=== PATIENT | female | born 1990 | race Caucasian/White ===

== ENCOUNTER 2021-06-19 01:40 | Outpatient (CLI) | payer BC, SELFPAY ==
[2021-06-19 15:20] LABS: Kit/Specimen SENT
[2021-06-19 15:28] LABS: Abs Immature Grans 0.06 10^3/uL (0.0-0.06); Absolute Lymphocyte Count 1.92 10^3/uL (1.2-3.4); Absolute Monocyte Count 0.63 10^3/uL (0.1-0.8); Basophils % 0.4; HCT 38.5 % (36.0-46.0); HGB 12.9 g/dL (11.2-15.7); Immature Grans % 0.4; Lymphocytes % 14.3; MCH 29.1 pg (27.0-33.0); MCHC 33.5 % (32.0-36.0); MCV 86.9 fL (80-95); MPV 10.2 fL (8.0-11.0); Monocytes % 4.7; Neutrophils % 79.2; Nucleated RBC 0 %; Platelet Count 320 10^3/uL (130-400); RBC 4.43 10^6/uL (3.93-5.22); RDW 12.2 % (11.7-14.6); RDW-SD 38.7 fL; WBC 13.42 10^3/uL (4.4-10.8)
[2021-06-19 15:29] LABS: Absolute Basophil Count 0.05 10^3/uL (0.0-0.2); Absolute Eosinophil Count 0.13 10^3/uL (0.0-0.7); Absolute Neutrophil Count 10.63 10^3/uL (1.2-6.7)
[2021-06-19 16:19] LABS: Hemoglobin A1C 4.8 % (<5.7)
[2021-06-19 16:32] LABS: ALT 17 U/L (14-59); AST 11 U/L (15-37); Albumin 3.8 g/dL (3.4-5.0); Alkaline Phosphatase 58 U/L (46-116); Anion Gap 10.3 mmol/L (3-11); BUN 10 mg/dL (7-18); Bilirubin, Total 0.2 mg/dL (0.2-1.0); CO2 25.7 mmol/L (21.0-32.0); CREATININE 0.5 mg/dL (0.55-1.02); Chloride 99 mmol/L (98-107); Glucose 85 mg/dL (74-106); Potassium 4.1 mmol/L (3.5-5.1); Sodium 135 mmol/L (136-145); TSH (W/Ref FT4) 0.08 uIU/mL (0.36-3.74); Total Protein 6.9 g/dL (6.4-8.2)
[2021-06-19 16:53] LABS: FREE T4 1.22 ng/dL (0.76-1.46)
[2021-06-20 08:38] LABS: Hepatitis B Surface Ag Negative (Negative)
[2021-06-20 09:12] LABS: Varicella IgG Antibody Positive (See Note)
[2021-06-20 09:18] LABS: Rubella IgG Ab (UVM) Positive (See Note)
[2021-06-20 09:26] LABS: HIV-1/2 Ag & Ab Screen Negative (Negative)
[2021-06-20 09:36] LABS: Hepatitis C Ab w Rflx HCV PCR Negative (Negative)
[2021-06-20 13:09] LABS: Syphilis Total Ab w/Reflex Nonreactive (Nonreactive)
[2021-06-21 01:13] LABS: 25-Hydroxy D Total 49 ng/mL; 25-Hydroxy D2 <4.0 ng/mL; 25-Hydroxy D3 49 ng/mL
[2021-06-23 21:53] LABS: Specimen WB Whole Blood
== END 2021-06-19 01:41 | disposition home or self-care (01) ==
LOC: LBO 01:40
PROVIDERS: PCP Family Medicine; Visit Provider Advanced Practice Midwife
DX: O21.9 Vomiting of pregnancy, unspecified
CPT/HCPCS: 80053; 81329; 82306; 86787; 86803; 86850; 86900; 86901; 87340; 87389; 83036; 84439; 84443; 85025; 86762; 86780

== ENCOUNTER 2021-06-19 17:57 | Outpatient (REF) | payer BC, SELFPAY ==
[2021-06-19 19:48] LABS: *AMPHETAMINES SCREEN URINE Negative (Negative); *BARBITURATES SCREEN URINE Negative (Negative); *BENZODIAZEPINES SCREEN URINE Negative (Negative); Cannabinoids THC Negative (Negative); Cocaine Screen,Urine Negative (Negative); METHADONE URINE SCREEN Negative (Negative); OPIATES URINE SCREEN Negative (Negative)
[2021-06-19 19:49] LABS: Tricyclic Antidepressants Negative (Negative)
[2021-06-21 15:00] LABS: Chlamydia Result Negative (Negative); GC Result Negative (Negative)
[2021-06-25 14:38] LABS: Buprenorphine Negative ng/mL (Cutoff: 5.0); Norbuprenorphine Negative ng/mL (Cutoff: 2.5)
== END 2021-06-19 17:58 | disposition home or self-care (01) ==
LOC: LBN 17:57
PROVIDERS: PCP Family Medicine; Visit Provider Advanced Practice Midwife
DX: Z34.91 Encounter for supervision of normal pregnancy, unspecified, first trimester
CPT/HCPCS: 80307; 87491; 87591; 87086

== ENCOUNTER 2021-07-18 02:06 | Outpatient (CLI) | payer BC, SELFPAY ==
[2021-07-18 16:52] LABS: Kit/Specimen SENT
[2021-07-18 17:52] LABS: FREE T4 1.01 ng/dL (0.76-1.46); TSH 0.15 uIU/mL (0.36-3.74)
[2021-07-22 12:29] LABS: AFP 20.8 ng/mL; Cigarette smoking status non-Smoker; GA used in risk estimate Scan estimate; IVF Pregnancy No; Initial or repeat testing Initial testing; Insulin dependent diabetes No; Maternal Weight 110 lbs; Number of Fetuses 1; Prev Pregnancy w/NTD No; RECOMMENDED FOLLOW UP None.; Results Summary Normal risk
[2021-07-27 02:24] LABS: Result Summary NEGATIVE; Specimen WB Whole Blood
== END 2021-07-18 02:07 | disposition home or self-care (01) ==
LOC: LBO 02:06
PROVIDERS: Advanced Practice Midwife; PCP Family Medicine; Visit Provider Advanced Practice Midwife
DX: Z34.02 Encounter for supervision of normal first pregnancy, second trimester (principal); R79.89 Other specified abnormal findings of blood chemistry
CPT/HCPCS: 36415; 81220; 82105; 84439; 84443

== ENCOUNTER 2021-08-28 02:52 | Outpatient (CLI) | payer BC, SELFPAY ==
[2021-08-29 05:34] LABS: Vitamin D 25 Total 43.6 ng/mL (30-100)
== END 2021-08-28 02:53 | disposition home or self-care (01) ==
LOC: LBO 02:52
PROVIDERS: Advanced Practice Midwife; PCP Family Medicine; Visit Provider Advanced Practice Midwife
DX: Z34.92 Encounter for supervision of normal pregnancy, unspecified, second trimester (principal); Z77.011 Contact with and (suspected) exposure to lead
CPT/HCPCS: 36415; 82306; 83655

== ENCOUNTER 2021-10-08 02:01 | Outpatient (CLI) | payer BC, SELFPAY ==
[2021-10-08 07:19] LABS: HCT 37.1 % (36.0-46.0); HGB 12.3 g/dL (11.2-15.7); MCH 29.4 pg (27.0-33.0); MCHC 33.2 % (32.0-36.0); MCV 89 fL (80-95); MPV 10.1 fL (8.0-11.0); Platelet Count 244 10^3/uL (130-400); RBC 4.18 10^6/uL (3.93-5.22); RDW 12.5 % (11.7-14.6); RDW-SD 40.5 fL; WBC 14.36 10^3/uL (4.4-10.8)
[2021-10-08 09:27] LABS: Glucose 1 Hour 106 mg/dL
[2021-10-08 09:47] LABS: GTT Comment See Comments
== END 2021-10-08 02:02 | disposition home or self-care (01) ==
LOC: LBO 02:01
PROVIDERS: PCP Family Medicine; Visit Provider Advanced Practice Midwife
DX: Z34.92 Encounter for supervision of normal pregnancy, unspecified, second trimester (principal); Z3A.27 27 weeks gestation of pregnancy
CPT/HCPCS: 36415; 85027; 82951

== ENCOUNTER 2021-11-03 20:24 | Outpatient (CLI) | payer BC, SELFPAY ==
[2021-11-03] VITALS (30 sets, daily range): BP systolic 101; BP diastolic 65; PULSE 78–102; TEMP 37.2; O2SAT 97–100
--- OUTSIDE RECORDS SUMMARY | 2021-11-03 20:25 | XMS_ITS | Encounter Summary ---
:1990 Author Organization [facility] Address [address] [place] [address] Care Team Providers Name Role Phone Melva Covington MD Primary Care Provider Reason for Visit Reason Comments Labs Only Laboratory Services (Routine) - New Request Specialty Diagnoses / Procedures Referred By Contact Refer red To Contact Diagnoses Iron deficiency anemia secondary to inadequate dietary iron intake Melva Covington MD Procedures FERRITIN [address] [place] [address] Referral ID Status Reason Start Date Expiration Date Visits V isits Requested Authorized [id number] New Request 08/07/2020 1 1 Encounter Details Date Type Department Care Team Description 08/20/2020 Nurse Only [facility] - Nurse, [facility] Iron de ficiency anemia secondary to inadequate dietary iron intake; [facility] [place] Vitamin D d eficiency; Family Medicine - Screening for diabetes mellitus; [place] Cold hands and feet; [address] [facility] 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 Within the past 12 months, the food you bought just didn't N ever true 01/27/2020 last and you didn't have money to get more. Sex Assigned at Date Recorded Not on file COVID-19 Exposure Response Date Recorded In the last month, have you been in contact with No / Unsure 08/20/2020 9:11 EDT someone who was confirmed or suspected to have Coronavirus / COVID-19? documented as of this encounter Progress Notes Suma Chandra RN - 08/20/2020 0915 EDT Here for labs VENIPUNCTURE: Performed by Bharath RN Site Collected Left Antecubital Space DSD applied Volume Withdrawn STT; 8.5ml and Lavender Top Tube; 3.0ml Patient Response Patient tolerated venipuncture well and Number of attempts 1 Ordering Provider Melva Covington MD documented in this encounter Plan of Treatment Not on filedocumented as of this encounter Procedures Procedure Name Priority Date/Time Associated Diagnosis Comme nts T3 FREE Routine 08/20/2020 9:14 EDT Cold hands a nd feet Results for this Infertility due to procedure are in luteal phase def ect the results Hair loss section. T4 FREE Routine 08/20/2020 9:14 EDT Cold hands a nd feet Results for this Infertility due to procedure are in luteal phase def ect the results Hair loss section. FERRITIN Routine 08/20/2020 9:14 EDT Iron deficiency Resul ts for this anemia secondary to procedur e are in inadequate dietary the resul ts iron intake section. BASIC METABOLIC Routine 08/20/2020 9:14 EDT Screening for Resu lts for this PANEL (BMP) diabetes mellitus procedure are in the results section. documented in this encounter Results T3 FREE (08/20/2020 9:14 EDT) T3,FREE - [facility] 3.0 2.8 - 4.4 [facility] Comment: pg/mL [facility] Test Performed by: [facility] - [facility] [address] [place] [address] Ship Captain: Tavo Fitch M.D. Ph.D.; CLIA# [id number] Specimen Blood - Venous blood (substance) Performing Organization Address City/State/ZIP Code Phon e Number [facility] [address] [place] [address] T4 FREE (08/20/2020 9:14 EDT) Pathologist Sig nature FREE T4 - [facility] 1.18 0.78 - 2.19 ng/dl [facility] Specimen Blood - Venous blood (substance) Performing Organization Address [facility] Phon e Number [facility] [address] [place] [address] BASIC METABOLIC PANEL (BMP) (08/20/2020 9:14 EDT) [facility] 13 10 - 26 mg/dL [facility] CALCIUM - [facility] 9.8 8.5 - 10.5 [facility] mg/dL [facility] Chloride 103 96 - 110 [facility] mmol/L [facility] CO2 Total 28 22 - 32 mEq/L [facility] CREATININE 0.69 0.52 - 1.04 [facility] mg/dL [facility] eGFR >60 [facility] Comment: [facility] Chronic renal impairment is defined as GFR <60 Multiply result by 1.210 for patients . eGFR calculated using the IDMS-traceable MDRD Study Equation. ??(effective 03/27/2014) Anion Gap 10 0 - 18 [facility] GLUCOSE [facility] 85 70 - 100 mg/dL [facility] Potassium 4.3 3.5 - 5.0 [facility] mEq/L [facility] Sodium 141 136 - 145 [facility] mEq/L [facility] Specimen Blood - Venous blood (substance) Performing Organization Address [facility] Phon e Number [facility] [address] [place] [phone] FERRITIN (08/20/2020 9:14 EDT) [facility] FERRITIN [facility] 20 6.2 - 137.0 [facility] Comment: ng/mL [facility] The results of this assay can be falsely lowered due t o the consumption of Biotin. Specimen Blood - Venous blood (substance) Performing Organization Address 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
--- OUTSIDE RECORDS SUMMARY | 2021-11-03 20:25 | XMS_ITS | Encounter Summary ---
:1990 Author Organization [facility] Address [address] [place] [address] Care Team Providers Name Role Phone Melva Covington MD Primary Care Provider Reason for Visit Reason Onset Date Comments Results 08/21/2020 Encounter Details Date Type Department Care Team Description 08/21/2020 Telephone [facility] Melva Gonzalez MD Results [facility] - [address] [place] [address] [phone] Social History Tobacco Use Types Packs/Day Years [...] / COVID-19? documented as of this encounter Miscellaneous Notes Telephone Encounter - Joanna Dave LPN - 08/21/2020 0804 EDT mychart message sent with normal results elephone Encounter - Joanna Dave LPN - 08/21/2020 0803 EDT ----- Message from Melva Covington MD sent at 08/20/2020 15:03 EDT ----- Tell patient results are normal. documented in this encounter Plan of Treatment Not on filedocumented as of this encounter Visit Diagnoses Not on filedocumented in this encounter Care Teams Squeegee Finisher Relationship Specialty Start Date End Date Melva Covington MD PCP - General Family Medicine - Primary 04/27/19 Care documented as of this encounter
--- OUTSIDE RECORDS SUMMARY | 2021-11-03 20:25 | XMS_ITS | Encounter Summary ---
:1990 Author Organization [facility] Address [address] [place] [address] Care Team Providers Name Role Phone Melva Covington MD Primary Care Provider Reason for Visit Reason Onset Date Comments Letter for School/Work 06/13/2021 Encounter Details Date Type Department Care Team Description 06/13/2021 Telephone [facility] - Melva Covignton Letter for School/Work RUST MD [facility] - [address] [place] [address] [phone] Social History Tobacco Use Types Packs/Day Years [...] Assigned at Date Recorded Not on file documented as of this encounter Miscellaneous Notes Telephone Encounter - Elsi Simons MA - 06/13/2021 1457 EST Letter sent via [employer]. elephone Encounter - Melva Covington MD - 06/13/2021 1429 EST sure Telephone Encounter - Preeti Gimenez - 06/13/2021 0848 EST Pt Calling to ask if RC can write a letter for work, Looking to extend time working from home, issues, vomiting, Etc. documented in this encounter Plan of Treatment Not on filedocumented as of this encounter Visit Diagnoses Not on filedocumented in this encounter Care Teams Furniture Finisher Relationship Specialty Start Date End Date Melva Covington MD PCP - General Family Medicine - Primary 04/27/19 Care documented as of this encounter
--- OUTSIDE RECORDS SUMMARY | 2021-11-03 20:25 | XMS_ITS | Encounter Summary ---
:1990 Author Organization [facility] Address [address] [place] [address] Care Team Providers Name Role Phone Melva Covington MD Primary Care Provider Encounter Details Date Type Department Care Team Description 08/28/2021 Lab Requisition [facility] Outr Resulting Lab, Pathology & Laboratory Provider [facility] [address] [place], [place] [id number] Social History Tobacco Use Types Packs/Day Years [...] on file documented as of this encounter Plan of Treatment Not on filedocumented as of this encounter Procedures Procedure Name Priority Date/Time Associated Diagnosis Comme nts [facility] Routine 08/28/2021 7:16 EDT Res ults for [facility] procedure are i n the results section. documented in this encounter Results [facility] (08/28/2021 7:16 EDT) Pathologist Sig nature Lead <2.0 <=4.9 ug/dL [facility] Specimen Blood - Venous blood (substance) Narrative [facility] - 2021 11:49 EDT Testing performed using Graphite Furnace Atomic Absorption Spectroscopy. This test was developed and its performa nce characteristics determined by the [facility]. ??It has not been cleared or approved by the FDA. ??The laboratory is regulated under CLIA as qualified to perform high comple xity testing. ??This test is used for clinical purposes. Performing Organization Address City/State/[facility] Code Phon e Number [facility] [address] [place] [address] SERVICES documented in this encounter Visit Diagnoses Not on filedocumented in this encounter Care Teams Certified Home Health Aide Relationship Specialty Start Date End Date Melva Covington MD PCP - General Family Medicine - Primary 04/27/19 Care documented as of this encounter
--- OUTSIDE RECORDS SUMMARY | 2021-11-03 20:25 | XMS_ITS | Encounter Summary ---
:1990 Author Organization [facility] Address [address] [place] [address] Care Team Providers Name Role Phone Melva Covington MD Primary Care Provider Encounter Details Date Type Department Care Team Description 06/19/2021 Lab Requisition [facility] Outr Resulting Lab, Pathology & Laboratory Provider [facility] [address] [place], [place] [id number] Social History Tobacco Use Types Packs/Day Years [...] Name Priority Date/Time Associated Diagnosis Comme nts HEPATITIS C AB W Routine 06/19/2021 15:07 Results for this REFLEX TO HCV RNA EST procedure are in BY PCR the results section. HEPATITIS B SURFACE Routine 06/19/2021 15:07 Resu lts for this ANTIGEN EST procedure are i n the results section. documented in this encounter Results HEPATITIS B SURFACE ANTIGEN (06/19/2021 15:07 EST) Pathologist Sig nature Hep B Surface Ag Negative Negative [facility] Specimen Blood - Venous blood (substance) Performing Organization Address City/State/ZIP Code Phon e Number [facility] [address] [place] [address] SERVICES HEPATITIS C AB W REFLEX TO HCV RNA BY PCR (06/19/2021 15:07 EST) Pathologist Sig nature Hep C Antibody Negative Negative [facility] Specimen Blood - Venous blood (substance) Performing Organization Address City/State/ZIP Code Phon e Number [facility] [address] [place] [address] SERVICES documented in this encounter Visit Diagnoses Not on filedocumented in this encounter Care Teams Racket Stringer Relationship Specialty Start Date End Date Melva Covington MD PCP - General Family Medicine - Primary 04/27/19 Care documented as of this encounter
--- OUTSIDE RECORDS SUMMARY | 2021-11-03 20:25 | XMS_ITS | Encounter Summary ---
:1990 Author Organization [facility] Address [address] [place] [address] Care Team Providers Name Role Phone Melva Covington MD Primary Care Provider Reason for Visit Reason Onset Date Comments Labs Only 05/04/2020 Encounter Details Date Type Department Care Team Description 05/04/2020 Telephone [facility] Melva Gonzalez MD Labs Only [facility] - [address] [place], [place] [address] [place] [phone] [place] [address] [phone] Social History Tobacco Use Types Packs/Day Years [...] this encounter Miscellaneous Notes Telephone Encounter - Kenny Nolasco RN - 05/14/2020 1553 EST Results reviewed with the client. elephone Encounter - Margareth Richards - 05/09/2020 1300 EST Pt called again asking for results. I relayed to her RC's message that all three were normal but shehas questions for a nurse. She is asking to be contacted after 4. elephone Encounter - Melisa Garcia - 05/04/2020 1249 EST Pt calling asking for recent lab results. documented in this encounter Plan of Treatment Not on filedocumented as of this encounter Visit Diagnoses Not on filedocumented in this encounter Care Teams Tan Room Supervisor Relationship Specialty Start Date End Date Melva Covington MD PCP - General Family Medicine - Primary 04/27/19 Care documented as of this encounter
--- OUTSIDE RECORDS SUMMARY | 2021-11-03 20:25 | XMS_ITS | Encounter Summary ---
:1990 Author Organization [facility] Address [address] [place] [address] Care Team Providers Name Role Phone Melva Covington MD Primary Care Provider Encounter Details Date Type Department Care Team Description 08/20/2020 Travel Social History Tobacco Use Types Packs/Day Years [...] / COVID-19? documented as of this encounter Plan of Treatment Not on filedocumented as of this encounter Visit Diagnoses Not on filedocumented in this encounter Care Teams Office Machine Installer Relationship Specialty Start Date End Date Melva Covington MD PCP - General Family Medicine - Primary 04/27/19 Care documented as of this encounter
--- OUTSIDE RECORDS SUMMARY | 2021-11-03 20:25 | XMS_ITS | Encounter Summary ---
:1990 Author Organization [facility] Address [address] [place] [address] Care Team Providers Name Role Phone Melva Covington MD Primary Care Provider Reason for Visit Reason Onset Date Comments Results 07/20/2020 Covid-19 Call Center Encounter Details Date Type Department Care Team Description 07/20/2020 Telephone [facility] - Jillian Pierre RN Resul (Covid-19 Call [facility] [address] [place] [address] Social History Tobacco Use Types Packs/Day Years [...] this encounter Miscellaneous Notes Telephone Encounter - Jillian Pierre RN - 07/20/2020 0824 EST Patient called to ask for her results for the Covid-19 test she had on 07/17/20. Patient provided with negative result. Patient reports that she is feeling well. documented in this encounter Plan of Treatment Not on filedocumented as of this encounter Visit Diagnoses Not on filedocumented in this encounter Care Teams Slip Cover Estimator Relationship Specialty Start Date End Date Melva Covington MD PCP - General Family Medicine - Primary 04/27/19 [facility] documented as of this encounter
--- OUTSIDE RECORDS SUMMARY | 2021-11-03 20:25 | XMS_ITS | Encounter Summary ---
:[address] [facility] Address [address] [place] [address] Care Team Providers Name Role Phone Melva Covington MD Primary Care Provider Reason for Referral Laboratory Services (Routine) - New Request Specialty Diagnoses / Procedures Referred By Contact Refer red To Contact Diagnoses Iron deficiency anemia secondary to inadequate dietary iron intake Melva Covington MD Procedures FERRITIN [address] [place] [address] Referral ID Status Reason Start Date Expiration Date Visits V isits Requested Authorized [id number] New Request 08/07/2020 1 1 aboratory Services (Routine/Next Available) - New Request Specialty Diagnoses / Procedures Referred By Contact Refer red To Contact Diagnoses Iron deficiency anemia secondary to inadequate dietary iron intake Melva Covington MD Procedures COMPLETE BLOOD COUNT AND DIFFERENTIAL [address] [place] [address] Referral ID Status Reason Start Date Expiration Date Visits V isits Requested Authorized [id number] New Request 08/07/2020 1 1 aboratory Services (Routine) - New Request Specialty Diagnoses / Procedures Referred By Contact Refer red To Contact Diagnoses Vitamin D deficiency Melva Covington MD Procedures VITAMIN D (25,OH) [address] [place] [address] Referral ID Status Reason Start Date Expiration Date Visits V isits Requested Authorized [id number] New Request 08/07/2020 1 1 aboratory Services (Routine) - New Request Specialty Diagnoses / Procedures Referred By Contact Refer red To Contact Diagnoses Screening for diabetes mellitus Melva Covington MD Procedures BASIC METABOLIC PANEL (BMP) [address] [place] [address] Referral ID Status Reason Start Date Expiration Date Visits V isits Requested Authorized [id number] New Request 08/07/2020 1 1 aboratory Services (Routine/Next Available) - New Request Specialty Diagnoses / Procedures Referred By Contact Refer red To Contact Diagnoses Cold hands and feet 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 Hair loss Melva Covington MD Procedures T4 FREE [address] [place] [address] Referral ID Status Reason Start Date Expiration Date Visits V isits Requested Authorized [id number] New Request 08/07/2020 1 1 aboratory Services (Routine) - New Request Specialty Diagnoses / Procedures Referred By Contact Refer red To Contact Diagnoses Cold hands and feet 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 [address] Screening for diabetes mellitus; [address] [place], [place] Vitamin D deficiency; [place], [place] [phone] Iron deficiency anemia secondary to inad equate dietary iron intake; [phone] Hair loss (Work) Social History Tobacco Use Types Packs/Day Years [...] on file documented as of this encounter Last Filed Vital Signs Vital Sign Reading Time Taken Comments Blood Pressure - - Pulse - - Temperature - - Respiratory Rate - - Oxygen Saturation - - Inhaled Oxygen Concentration - - Weight 49.9 kg (110 lb) 08/06/2020 1627 EDT Height 157.5 cm (5' 2.01) 08/06/2020 1627 EDT Body Mass Index 20.11 08/06/2020 1627 EDT documented in this encounter Progress Notes Melva Covington MD - 08/07/2020 1600 EDT Images from the original note were not included. [facility] Video Visit Today's visit was provided through telemedicine video conferencing: The location of the patient: Workplace The location of the provider: Home office Verbal consent: The concept of ???Telemedicine?? has been described to the patient.Patient has been informed of theanticipated benefits and possible risks. Patient understands the information provided regarding telemedicine, has had the opportunity to ask questions about this information, and all questions have been answered to patient???s satisfaction. Patient consents for the use of telemedicine in his/her medical care and authorizes the transmission of any relevant medical information to providers and their staff involved in patient???s medical or mental health care. Verbal consent obtained by myself or auxiliary staff: yes. Subjective: Chief Complaint(s): Labs Only HPI: 29 yo F who would like discuss labs for pre-, vit d, iron, involved thyroid panel, AIC. She has cold hands and feel all of the time, hair loss, fatigue, and prolonged luteal phase. She has a history of iron deficiency anemia and vitamin d deficiency. She is also curious out getting the COVID vaccination before getting . I have reviewed patient's tobacco history: reports that she has never smoked. She has never used smokeless tobacco. I have reviewed current problem list and current medications. ROS: Review of Systems Constitutional: Positive for malaise/fatigue and weight loss. Skin: Hair loss Endo/Heme/Allergies: Cold hands and feet Objective: Examination: Home Vitals: Ht 157.5 cm (62.01) Wt 49.9 kg (110 lb) BMI 20.11 kg/m?? Pertinent exam findings: appears well, neck supple, no JVD, non-labored breathing, no wheeze, no rash on visible skin and mood and affect appropriate Data reviewed with patient: Reviewed and/or ordered active problem list, medication list, allergies,notes from last encounter, lab results tests Results for orders placed or performed in visit on 07/17/20 FLU/COVID SHAHRZAD(FLUVID) Result Value Ref Range SARS-CoV-2 RT-PCR Not Detected INFLUENZA A PCR - [facility] TNP INFLUENZA B PCR - [facility] TNP RSV PCR - [facility] TNP Assessment & Plan: Onelia was seen today for labs only. 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 I spent a total of 30 minutes in discussion with the patient as described in the progress note. The following individuals and their role did participate in today's encounter visit: Provider: Melva Covington MD Patient Melva Covington MD documented in this encounter Plan of Treatment Scheduled Orders Name Type Priority Associated Diagnoses Order S ludwin VITAMIN D (25,OH) Lab Routine Vitamin D deficiency Ex pected: 08/08/2020 (Approximate), Expires: 2021 COMPLETE BLOOD COUNT AND Lab Routine Iron deficiency anemia Expected: 08/07/2020 DIFFERENTIAL secondary to inadequate (Juancho roximate), dietary iron intake Expires: 08/07/2021 documented as of this encounter Results FERRITIN (08/20/2020 9:14 EDT) [facility] FERRITIN [facility] 20 6.2 - 137.0 [facility] Comment: ng/mL [facility] The results of this assay can be falsely lowered due t o the consumption of Biotin. Specimen Blood - Venous blood (substance) Performing Organization Address [facility] Phon e Number [facility] [address] [place] [address] BASIC METABOLIC PANEL (BMP) (08/20/2020 9:14 EDT) [facility] BUN [facility] 13 10 - 26 mg/dL [facility] CALCIUM - [facility] 9.8 8.5 - 10.5 [facility] mg/dL [facility] Chloride 103 96 - 110 [facility] mmol/L [facility] CO2 Total 28 22 - 32 mEq/L [facility] CREATININE 0.69 0.52 - 1.04 [facility] mg/dL [facility] eGFR >60 [facility] Comment: [facility] Chronic renal impairment is defined as GFR <60 Multiply result by 1.210 for patients . eGFR calculated using the IDMS-traceable MDRD Study Equation. ??(effective 03/27/2014) Anion Gap 10 0 - 18 [facility] GLUCOSE - [facility] 85 70 - 100 mg/dL [facility] Potassium 4.3 3.5 - 5.0 [facility] mEq/L [facility] Sodium 141 136 - 145 [facility] mEq/L [facility] Specimen Blood - Venous blood (substance) Performing Organization Address City/[facility] Phon e Number [facility] [address] [place] [address] T4 FREE (08/20/2020 9:14 EDT) Pathologist [facility] nature FREE T4 - [facility] 1.18 0.78 - 2.19 ng/dl [facility] Specimen Blood - Venous blood (substance) Performing Organization Address City/[facility]/ZIP Code Phon e Number [facility] [address] [place] [address] T3 FREE (08/20/2020 9:14 EDT) T3,FREE - [facility] 3.0 2.8 - 4.4 [facility] Comment: pg/mL [facility] Test Performed by: [facility] [address] [place] [address] Air Pollution Engineer: Tavo Fitch M.D. Ph.D.; CLIA# [id number] Specimen Blood - Venous blood (substance) Performing Organization Address City/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 08/07/2020 380A INTRAUTERINE) Fish Oil-[place]-3 1 cap by mouth daily Fatty Acids (FISH OIL) 360-1,200 mg capsule TURMERIC ORAL Take by mouth. 08/07/2020 documented as of this encounter Historical Medications This list may reflect changes made after this encounter. Medication Sig Dispensed Refills Start Date End Date docosahexaenoic acid (DHA Take by mouth. 0 05/21/2021 ORAL) added in this encounter Care Teams Die Cutting Machine Operator Relationship Specialty Start Date End Date Melva Covington MD PCP - General Family Medicine - Primary 04/27/19 Care documented as of this encounter
--- OUTSIDE RECORDS SUMMARY | 2021-11-03 20:25 | XMS_ITS | Encounter Summary ---
:[address] [facility] Address [address] [place] [address] Care Team Providers Name Role Phone Melva Covington MD Primary Care Provider Encounter Details Date Type Department Care Team Description 06/19/2021 Lab Requisition [facility] Outr Resulting Lab, Pathology & Laboratory Provider [facility] [address] [place], [place] [address] Social History Tobacco Use Types Packs/Day Years [...] Name Priority Date/Time Associated Diagnosis Comme nts RUBELLA IGG Routine 06/19/2021 15:07 Results for this ANTIBODY EST procedure are i n the results section. VARICELLA IGG Routine 06/19/2021 15:07 Results fo r this ANTIBODY EST procedure are i n the results section. documented in this encounter Results VARICELLA IGG ANTIBODY (06/19/2021 15:07 EST) Varicella IgG Ab PositiveComment: See Note [facility] Presence of LABORATORY SERVICES detectable Varicella Zoster virus IgG antibodies. Specimen Blood - Venous blood (substance) Performing Organization Address City/State/ZIP Code Phon e Number [facility] LABORATORY [address] [place] [address] SERVICES RUBELLA IGG ANTIBODY (06/19/2021 15:07 EST) Rubella IgG Ab PositiveComment: See Note [facility] Positive for IgG LABORATORY SERVICES antibodies to Rubella virus. Specimen Blood - Venous blood (substance) Performing Organization Address City/State/ZIP Code Phon e Number [facility]ORY [address] [place] [address] SERVICES documented in this encounter Visit Diagnoses Not on filedocumented in this encounter Care Teams As400 Developer Relationship Specialty Start Date End Date Melva Covington MD PCP - General Family Medicine - Primary 04/27/19 Care documented as of this encounter
--- OUTSIDE RECORDS SUMMARY | 2021-11-03 20:25 | XMS_ITS | Clinical Summary ---
:1990 Author Organization [facility] Address [address] [place] [address] Care Team Providers Name Role Phone Melva Covington MD Primary Care Provider Allergies No known active allergies Medications Medication Sig Dispensed Refills Start Date End Date Status vit Take 1 Capsule by 90 Cap 4 02/06/2020 Active 45-ujdv-nfoya-dha 27mg mouth daily. iron- 800 mcg-250 mg capsuleIndications: Encounter for preconception consultation Active Problems No known active problems Resolved Problems Problem Noted Date Resolved Date IUD (intrauterine device) in place 09/16/201908/07 Other general symptoms and signs 08/05/2019 021 Encounters Date Type Specialty Care Team Description 08/28/2021 Lab Requisition Clinical Laboratory Outr Resulting Lab , Provider from Last 3 Months Immunizations Name Administration Dates Next Due Covid-19 mRNA Vaccine ([place] COVID-19) 09/29/2020 PF 0.3 ml IM (12 yrs+) DTaP Vaccine (INFANRIX) <7YO IM 05/07/1990 Hepatitis A Vaccine Ped-Adol 07/20/2004 (HAVRIX/VAQTA) 2 Dose IM Hepatitis B Vaccine Ped/Adolescent 3-dose 08/27/1995, 1994, 02/19/1995 IM Hib PRP-T Conjugate Vaccine 4 Dose IM 12/07/1989 Human Papillomavirus (HPV9) 9-Valent 12/18/2011, 09/17/2011, 07/14/2011 Vaccine (GARDASIL-9) IM MMR Vaccine SQ 11/19/2015, 11/22/1993 Meningococcal Conjugate (MCV4) Vaccine 11/28/2006 (MENACTRA) 4-Valent IM Poliovirus Vaccine IPV IM OR SQ 05/07/1990 Tdap Vaccine =>7YO IM 11/16/2015, 11/15/2009 Varicella (Chickenpox) vaccine (VARIVAX) 05/25/1998 SQ Family History Medical History Relation Name Comments High Cholesterol Father Cancer Maternal Grandmother breast High Cholesterol Mother Relation Name Status Comments Father Maternal Grandmother Mother Social History Tobacco Use Types Packs/Day Years [...] Assigned at Date Recorded Not on file Last Filed Vital Signs Vital Sign Reading Time Taken Comments Blood Pressure 98/64 02/06/2020 1521 EDT Pulse 70 02/06/2020 1521 EDT Temperature 36.8 ??C (98.2 ??F) 09/16/2019 0805 EDT Respiratory Rate 16 02/06/2020 1521 EDT Oxygen Saturation - - Inhaled Oxygen Concentration - - Weight 49.9 kg (110 lb) 08/06/2020 1627 EDT Height 157.5 cm (5' 2.01) 05/21/2021 1440 EST Body Mass Index 20.11 08/06/2020 1627 EDT Plan of Treatment Health Maintenance Due Date Last Done Comments Social Determinants Of Health (SDOH) 1990 Advance Directive 2006 Cervical Cancer Screening 08/08/2018 08/09/2015 Behavioral Health Screen 09/15/2020 09/16/2019 COVID-19 Vaccine (2 - Pfizer 3-dose 10/20/2020 09/29/2020 series) Preventive Care Visit 01/26/2022 01/27/2020 Influenza Immunization (Adult) (Season 02/22/2022 Ended) Tetanus (Adult) Immunization 11/15/2025 11/16/2015, 010 Pertussis (Adult) Immunization Completed 11/16/2015, 11/15 HIV Screening Completed 06/19/2021 Hepatitis C Screen Completed 06/19/2021 Procedures Procedure Name Priority Date/Time Associated Diagnosis Comme nts [facility], [facility] Routine 08/28/2021 7:16 EDT Res ults for this CENTER LAB procedure are i n the results section. from Last 3 Months Results LEAD, [facility] (08/28/2021 7:16 EDT) Pathologist Sig nature Lead <2.0 <=4.9 ug/dL [facility] LABORATOR Y SERVICES Specimen Blood - Venous blood (substance) Narrative [facility] LABORATORY SERVICES - 2021 11:49 EDT Testing performed using Graphite Furnace Atomic Absorption Spectroscopy. This test was developed and its performa nce characteristics determined by the [facility]. ??It has not been cleared or approved by the FDA. ??The laboratory is regulated under CLIA as qualified to perform high comple xity testing. ??This test is used for clinical purposes. Performing Organization Address City/[facility] Code Phon e Number [facility] LABORATORY [address] [place] [address] SERVICES from Last 3 Months Insurance Payer Benefit Plan / Subscriber ID Effective Dates Phone Addre ss Type Group [facility] [id number] 01/24/2020-Present [address] [place] [address] Guarantor Name Account Type Relation to Date of Phone Bill ing Patient Address Onelia Anne Personal/Family Self 1990 [address] (Home) [place] [address] Onelia Anne Personal/Family Self 1990 [address]Home) [place] [address] Onelia Anne Personal/Family Self 1990 [address]Home) [place] [address] Onelia Anne Personal/Family Self 1990 [address]Home) [place] [address] Onelia Anne Personal/Family Self 1990 [address]Home) [place] [address] Onelia Anne Personal/Family Self 1990 [address] (Home) [place] [address] Onelia Anne Personal/Family Self 1990 [address] (Home) [place] [address] Onelia Anne Personal/Family Self 1990 [address] (Home) [place] [address] Care Teams Proposal Manager Relationship Specialty Start Date End Date Melva Covington MD PCP - General Family Medicine - Primary 04/27/19 Care
--- OUTSIDE RECORDS SUMMARY | 2021-11-03 20:25 | XMS_ITS | Encounter Summary ---
:1990 Author Organization [facility] Address [address] [place] [address] Care Team Providers Name Role Phone Melva Covington MD Primary Care Provider Encounter Details Date Type Department Care Team Description 07/17/2020 Results Only [facility] Melva Covington, [facility] - [place] [address] [facility] [address] [place] [phone] (Wo rk) Social History Tobacco Use Types Packs/Day Years [...] Name Priority Date/Time Associated Diagnosis Comme nts FLU/COVID Routine 07/17/2020 10:14 Results for this SHAHRZAD(FLUVID) EST procedure are i n the results section. documented in this encounter Results FLU/COVID SHAHRZAD(FLUVID) (07/17/2020 10:14 EST) SARS-CoV-2 RT-PCR Not Detected [facility] Comment: [facility] The 2019 novel coronavirus (SARS-CoV-2) target nucleic acids are not detected. INFLUENZA A PCR - TNP [facility] INFLUENZA B PCR - [facility] RSV PCR - [facility] Specimen Performing Organization Address City/State/ZIP Code Phon e Number [facility] [address] [place] [address] documented in this encounter Visit Diagnoses Not on filedocumented in this encounter Care Teams Tours Hostess Relationship Specialty Start Date End Date Melva Covington MD PCP - General Family Medicine - Primary 04/27/19 Care documented as of this encounter
--- OUTSIDE RECORDS SUMMARY | 2021-11-03 20:25 | XMS_ITS | Encounter Summary ---
:1990 Author Organization [facility] Address [address] [place] [address] Care Team Providers Name Role Phone Melva Covington MD Primary Care Provider Reason for Visit Reason Comments COVID-19 Encounter Details Date Type Department Care Team Description 07/17/2020 Office Visit [facility] Scre ening for viral [facility] Testing disease (Prim alberto Dx) [facility] - [facility] Testing Department [address] [place] [address] Social History Tobacco Use Types Packs/Day Years [...] on file documented as of this encounter Progress Notes Kyra Almodovar - 07/17/2020 0900 EST SWABBED BY CF RN documented in this encounter Plan of Treatment Not on filedocumented as of this encounter Visit Diagnoses Diagnosis Screening for viral disease - Primary Special screening examination for unspec ified viral disease documented in this encounter Care Teams Manager Case Relationship Specialty Start Date End Date Melva Covington MD PCP - General Family Medicine - Primary 04/27/19 Care documented as of this encounter
--- OUTSIDE RECORDS SUMMARY | 2021-11-03 20:25 | XMS_ITS | Encounter Summary ---
:1990 Author Organization [facility] Address [address] [place] [address] Care Team Providers Name Role Phone Melva Covington MD Primary Care Provider Encounter Details Date Type Department Care Team Description 06/20/2021 Lab Requisition [facility] Outr Resulting Lab, Pathology & Laboratory Provider [facility] [address] [place], [place] [id number] Social History Tobacco Use Types Packs/Day Years [...] encounter Procedures Procedure Name Priority Date/Time Associated Comments Diagnosis CHLAMYDIA/N. Routine 06/19/2021 14:00 Results for this GONORRHOEAE AMPLIFIED EST proced ure are in RNA the results section. documented in this encounter Results CHLAMYDIA/N. GONORRHOEAE AMPLIFIED RNA (06/19/2021 14:00 EST) Pathologist Sig nature Gonococcus Result Negative Negative [facility] Chlamydia Result Negative Negative [facility] Specimen Swab - Entire endocervix (body structure ) Performing Organization Address City/State/ZIP Code Phon e Number [facility] [address] [place] [address] SERVICES documented in this encounter Visit Diagnoses Not on filedocumented in this encounter Care Teams Roll Line Operator Relationship Specialty Start Date End Date Melva Covington MD PCP - General Family Medicine - Primary 04/27/19 Care documented as of this encounter
--- OUTSIDE RECORDS SUMMARY | 2021-11-03 20:25 | XMS_ITS | Encounter Summary ---
:1990 Author Organization [facility] Address [address] [place] [address] Care Team Providers Name Role Phone Mevla Covington MD Primary Care Provider Reason for Visit Reason Onset Date Comments Other 05/23/2021 Encounter Details Date Type Department Care Team Description 05/23/2021 Telephone [facility] Melva Gonzalez MD Other [facility] - [address] [place], [place] [address] [address] [phone] Social History Tobacco Use Types Packs/Day Years [...] this encounter Miscellaneous Notes Telephone Encounter - Preeti Gimenez - 05/23/2021 0955 EST .. documented in this encounter Plan of Treatment Not on filedocumented as of this encounter Visit Diagnoses Not on filedocumented in this encounter Care Teams A/C Tech Relationship Specialty Start Date End Date Melva Covington MD PCP - General Family Medicine - Primary 04/27/19 Care documented as of this encounter
--- OUTSIDE RECORDS SUMMARY | 2021-11-03 20:25 | XMS_ITS | Encounter Summary ---
:1990 Author Organization [facility] Address [address] [place] [address] Care Team Providers Name Role Phone Melva Covington MD Primary Care Provider Reason for Visit Reason Comments Other , booster, medical l eave Encounter Details Date Type Department Care Team Description 05/21/2021 Telemedicine [facility] - Melva Covington t mullen 8 weeks [facility] MD Aracely gestation of Medicine - [address] (Primary Dx) [address] [place] [address] [phone] Social History Tobacco Use Types Packs/Day Years [...] - Inhaled Oxygen Concentration - - Weight - - Height 157.5 cm (5' 2.01) 05/21/2021 1440 EST Body Mass Index - - documented in this encounter Progress Notes Melva Covington MD - 05/21/2021 1500 EST Images from the original note were not included. [facility] [place] Video Visit Today's visit was provided through telemedicine video conferencing: The location of the patient: Home The location of the provider: Home office [...] or auxiliary staff: yes. Subjective: Chief Complaint(s): Other (, booster, medical leave ) HPI: 30 yo F who is wondering about getting her booster for the COVID vaccination. She needs a letter for work so that she can wait until the endo of her first trimester. I have reviewed patient's tobacco history: reports that she has never smoked. She has never used smokeless tobacco. I have reviewed current problem list and current medications. ROS: Review of Systems Psychiatric/Behavioral: The patient is nervous/anxious. Objective: Examination: Home Vitals: Ht 157.5 cm (62.01) BMI 20.11 kg/m?? Pertinent exam findings: appears well, neck supple, no JVD, non-labored breathing, no wheeze, no rash on visible skin and mood and affect appropriate Data reviewed with patient: Reviewed and/or ordered active problem list, medication list, allergies,notes from last encounter, lab results tests Results for orders placed or performed in visit on 08/20/20 COMPLETE BLOOD COUNT WITH DIFFERENTIAL (AUTO) Result Value Ref Range ABSOLUTE NEUTROPHIL COUN - [facility] 4.0 2.2 - 8.85 10e3/uL BASO # - [facility] 0.05 0.01 - 0.11 10e/uL BASO % - [facility] 1 0 - 2 % EOS # - [facility] 0.22 0.03 - 0.61 10e3/ul EOS % - [facility] 3 0 - 5 % GRAN % - [facility] 58.4 40 - 80 % HEMATOCRIT - [facility] 45.6 (H) 34.9 - 44.4 % HEMOGLOBIN - [facility] 14.9 11.6 - 15.2 g/dl IG# - [facility] 0.01 0 - 0.7 10e3/uL IG% - [facility] 0.1 0 - 0.9 % LYMPH # - [facility] 2.1 1.09 - 3.3 10e3/ul LYMPH% - [facility] 31.2 20 - 40 % MEAN CORPUSCULAR HGB - [facility] 28.8 26.7 - 33.3 pg MEAN CORPUSCULAR HGB CONC - [facility] 32.7 32.1 - 35.9 g/dL MEAN CELL VOLUME - [facility] 88.2 81 - 98 fl MONO # - [facility] 0.4 0.1 - 0.8 10e3/uL MONO% - [facility] 6.4 0 - 12 % PLATELET COUNT 311 141 - 377 10e3/ul RED BLOOD COUNT - [facility] 5.17 (H) 3.86 - 5.04 10e6/ul RED CELL DISTRI WIDTH - [facility] 12.1 <14.7 % WHITE BLOOD COUNT - [facility] 6.8 4.0 - 12.4 10e3/ul VIT D, 25-HYDROXY - [facility] Result Value Ref Range VIT D, 25 HYDROXY - [facility] 39.2 30 - 100 ng/ml Assessment & Plan: Onelia was seen today for other. Diagnoses and all orders for this visit: Less than 8 weeks gestation of Comments: Letter written and questions answered. Return if symptoms worsen or fail to improve. I spent a total of 30 minutes in discussion with the patient as described in the progress note. The following individuals and their role did participate in today's encounter visit: Provider: Melva Covington MD Patient Melva Covington MD documented in this encounter Plan of Treatment Not on filedocumented as of this encounter Visit Diagnoses Diagnosis Less than 8 weeks gestation of - Primary state, incidental documented in this encounter Discontinued Medications Medication Sig Discontinue Reason Start Date End Date docosahexaenoic acid (DHA Take by mouth. 05/21/2021 ORAL) cholecalciferol, Vitamin 1 cap(s) orally 05/21/2021 D3, 1,000 unit tablet once a day documented as of this encounter Care Teams Historic Interpreter Relationship Specialty Start Date End Date Melva Covington MD PCP - General Family Medicine - Primary 04/27/19 Care documented as of this encounter
--- OUTSIDE RECORDS SUMMARY | 2021-11-03 20:25 | XMS_ITS | Encounter Summary ---
:1990 Author Organization [facility] Address [address] [place] [address] Care Team Providers Name Role Phone Melva Covington MD Primary Care Provider Encounter Details Date Type Department Care Team Description 08/20/2020 Results Only [facility] - [facility] [place] Melva Covington, Integrative Family Medicine [facility] [address] [facility] [address] [place] [address] [phone] (Wo rk) Social History Tobacco Use Types [...] Procedure Name Priority Date/Time Associated Comments Diagnosis VIT D, 25-HYDROXY - Routine 08/20/2020 9:14 Resul ts for this [facility] [place] EDT procedure are i n the results section. COMPLETE BLOOD COUNT Routine 08/20/2020 9:14 Resu lts for this WITH DIFFERENTIAL EDT procedure are in (AUTO) the results section. documented in this encounter Results VIT D, 25-HYDROXY - [facility] (08/20/2020 9:14 EDT) VIT D, 25 HYDROXY 39.2 30 - 100 [facility] Comment: ng/ml [facility] ? 25-Hydroxy D Total (D2+D3) ?Expected Values Deficient: ?<20 ng/ml Insufficient: ? 20- <30 ng/ml Sufficient: ? 30-100 ng/ml Potential intoxication: >100 ng/ml Specimen Performing Organization Address City/State/ZIP Code Phon e Number [facility] [address] [place] [address] (ABNORMAL) COMPLETE BLOOD COUNT WITH DIFFERENTIAL (AUTO) (08/20/2020 9:14 EDT) Pathologist Sig nature ABSOLUTE NEUTROPHIL 4.0 2.2 - 8.85 [facility] COUN - [facility] 10e3/uL [facility]ENTER [facility] BASO # - [facility] 0.05 0.01 - 0.11 [facility] 10e/uL [facility] BASO % - [facility] 1 0 - 2 % [facility] EOS # - [facility] 0.22 0.03 - 0.61 [facility] 10e3/ul [facility] EOS % - [facility] 3 0 - 5 % [facility] GRAN % - [facility] 58.4 40 - 80 % [facility] HEMATOCRIT - [facility] [place] 45.6 (H) 34.9 - 44.4 % [facility] HEMOGLOBIN - [facility] [place] 14.9 11.6 - 15.2 [facility] g/dl [facility] IG# - [facility] 0.01 0 - 0.7 10e3/uL [facility] IG% - [facility] 0.1 0 - 0.9 % [facility] LYMPH # - [facility] 2.1 1.09 - 3.3 [facility] 10e3/ul [facility]ENTER LAB LYMPH% - [facility] 31.2 20 - 40 % [facility] MEAN CORPUSCULAR HGB 28.8 26.7 - 33.3 pg [facility] ME D - [facility] MEAN CORPUSCULAR HGB 32.7 32.1 - 35.9 [facility] CONC - [facility] [place] g/dL [facility]ENTER LAB MEAN CELL VOLUME - 88.2 81 - 98 fl [facility] MONO # - [facility] [place] 0.4 0.1 - 0.8 [facility] 10e3/uL [facility] MONO% - [facility] [place] 6.4 0 - 12 % [facility] PLATELET COUNT 311 141 - 377 [facility] 10e3/ul [facility] RED BLOOD COUNT - 5.17 (H) 3.86 - 5.04 [facility] 10e6/ul [facility] RED CELL DISTRI WIDTH 12.1 <14.7 % [facility] WHITE BLOOD COUNT - 6.8 4.0 - 12.4 [facility] 10e3/ul [facility] Specimen Performing Organization Address City/State/ZIP Code Phon e Number [facility] [address] [place] [address] documented in this encounter Visit Diagnoses Not on filedocumented in this encounter Care Teams Substation Supervisor Relationship Specialty Start Date End Date Melva Covington MD PCP - General Family Medicine - Primary 04/27/19 Care documented as of this encounter
--- OUTSIDE RECORDS SUMMARY | 2021-11-03 20:26 | XMS_ITS | Encounter Summary ---
:1990 Author Organization [facility] Address [address] [place] [address] Care Team Providers Name Role Phone Melva Covington MD Primary Care Provider Reason for Visit Reason Onset Date Comments Appointment Related 04/29/2019 Apt on 05/09/2019 ne eds to be r/s Encounter Details Date Type Department Care Team Description 04/29/2019 Telephone [facility] - Melva Covington Appoin tment Related [facility] [place] Integrative Family MD Aracely (Apt on 05/09/2019 Medicine - [facility] [address] [facility] needs to be r/s ) [address] [place] [address] [phone] Social History Tobacco Use Types Packs/Day Years Used Date Never Assessed Food Insecurity Answer Date Recorded Within the [...] this encounter Miscellaneous Notes Telephone Encounter - Stephane Renee - 05/02/2019 1511 EST Patient returned call. Sched for 08/22/2019. elephone Encounter - Stephane Renee - 05/02/2019 1406 EST Attempted to contact patient to r/s appointment on 05/09. LMOVM> elephone Encounter - Stephane Renee - 04/29/2019 1154 EST LMOVM for patient to call back to r/s appointment with RC on 05/09/2019. documented in this encounter Plan of Treatment Not on filedocumented as of this encounter Visit Diagnoses Not on filedocumented in this encounter Care Teams County Judge Relationship Specialty Start Date End Date Melva Covington MD PCP - General Family Medicine - Primary 04/27/19 Care documented as of this encounter
--- OUTSIDE RECORDS SUMMARY | 2021-11-03 20:26 | XMS_ITS | Encounter Summary ---
:1990 Author Organization [facility] Address [address] [place] [address] Care Team Providers Name Role Phone Unknown, Provider Primary Care Provider Reason for Visit Reason Comments Immunizations pt needs paper work signed o ff regarding immunizations/titers Encounter Details Date Type Department Care Team Description 04/15/2019 Office Visit [facility] Tad Castillo [facility] - D, METAL FURNITURE GLAZIER examination (Primary [place] [address] Dx) [address] [place] [address] [address] [place] [address] Social History Tobacco Use Types Packs/Day Years [...] Reading Time Taken Comments Blood Pressure 98/64 04/15/2019 1510 EST Pulse 60 04/15/2019 1510 EST Temperature 36.8 ??C (98.2 ??F) 04/15/2019 1510 EST Respiratory Rate 20 04/15/2019 1510 EST Oxygen Saturation - - Inhaled Oxygen Concentration - - Weight - - Height - - Body Mass Index - - documented in this encounter Patient Instructions Patient InstructionsTad Castillo, DONOR SERVICES TECHNICIAN - 04/15/2019 15:00 EST School paperwork and immunization record reviewed and signed. 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 She has all of her immunization records with her. I have reviewed current problem list and current medications. ROS: Review of Systems All other systems reviewed and are negative. Objective: Examination: Vitals: BP 98/64 Pulse 60 Temp 36.8 ??C (98.2 ??F) (Oral) Resp 20 There is no height or weight on fileto calculate BMI. Physical Exam Constitutional: She is oriented to person, place, and time. No distress. Pulmonary/Chest: Effort normal. Musculoskeletal: Normal range of motion. Neurological: She is alert and oriented to person, place, and time. Skin: Skin is warm and dry. Psychiatric: She has a normal mood and affect. Assessment & Plan: 1. School health examination documented in this encounter Plan of Treatment Not on filedocumented as of this encounter Visit Diagnoses Diagnosis School health examination - Primary Health examination of defined subpopulat ion documented in this encounter Historical Medications This list may reflect changes made after this encounter. Medication Sig Dispensed Refills Start Date End Date copper (PARAGARD T by intrauterine route. 0 08/07/2020 380A INTRAUTERINE) added in this encounter Care Teams Exchange Teller Relationship Specialty Start Date End Date Unknown, Provider, PCP - General 10/02/14 04/26/19 documented as of this encounter
--- OUTSIDE RECORDS SUMMARY | 2021-11-03 20:26 | XMS_ITS | Encounter Summary ---
:1990 Author Organization [facility] Address [address] [place] [address] Care Team Providers Name Role Phone Melva Covington MD Primary Care Provider Reason for Visit Reason Onset Date Comments Results 02/10/2020 Encounter Details Date Type Department Care Team Description 02/10/2020 Telephone [facility] Melva Gonzalez MD Results Integrative Family Medicine - [address] [place], [place] [address] [phone] [place] [address] [phone] Social History Tobacco Use Types Packs/Day Years [...] Telephone Encounter - Joanna Dave LPN - 02/10/2020 0950 EDT TM left for pt with normal results elephone Encounter - Joanna Dave LPN - 02/10/2020 0949 EDT ----- Message from Melva Covington MD sent at 02/09/2020 13:45 EDT ----- Tell patient results are normal. documented in this encounter Plan of Treatment Not on filedocumented as of this encounter Visit Diagnoses Not on filedocumented in this encounter Care Teams Ledger Clerk Relationship Specialty Start Date End Date Melva Covington MD PCP - General Family Medicine - Primary 04/27/19 Care documented as of this encounter
--- OUTSIDE RECORDS SUMMARY | 2021-11-03 20:26 | XMS_ITS | Encounter Summary ---
:1990 Author Organization [facility] Address [address] [place] [address] Care Team Providers Name Role Phone Melva Covington MD Primary Care Provider Reason for Visit Reason Comments Annual Exam Encounter Details Date Type Department Care Team Description 01/27/2020 Office Visit [facility] - Melva Covington ter for well [facility] [place] Integrative Family MD Aracely adult exam without Medicine - [facility] [address] abnormal findings [address] [place], [place] (Primary Dx) [place] [address] [phone] Social History Tobacco Use Types Packs/Day Years [...] Sign Reading Time Taken Comments Blood Pressure 118/68 01/27/2020 1319 EDT Pulse 64 01/27/2020 1319 EDT Temperature - - Respiratory Rate 16 01/27/2020 1319 EDT Oxygen Saturation - - Inhaled Oxygen Concentration - - Weight 49.6 kg (109 lb 6.4 oz) 01/27/2020 1319 EDT Height 157.5 cm (5' 2) 01/27/2020 1319 EDT Body Mass Index 20.01 01/27/2020 1319 EDT documented in this encounter Progress Notes Melva Covington MD - 01/27/2020 1320 EDT Images from the original note were not included. [facility] Preventive Service Visit Chief Complaint Patient presents with ??? Annual Exam HPI: Onelia is a 29 y.o. female presenting for a routine check-up and exam. Patient's diet is healthy diet in general. Patient's activity level is walking. 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 She has never used smokeless tobacco. No history on file for alcohol. Weight, Exercise: Stable, daily Injury prevention: Wears seat belts, guns locked Immunizations: Immunization History Administered Date(s) Administered ? ? DTaP Vaccine (INFANRIX) <7YO IM 05/07/1990 ??? Hepatitis A Vaccine Ped-Adol (HAVRIX/VAQTA) 2 Dose IM 07/20/2004 ??? Hepatitis B Vaccine Ped/Adolescent 3-dose IM 02/19/1995, 03/26/1995, 08/27/1995 ??? Hib PRP-T Conjugate Vaccine 4 Dose IM 12/07/1989 ??? Human Papillomavirus (HPV9) 9-Valent Vaccine (GARDASIL-9) IM 07/14/2011, 09/17/2011, 12/18/2011 ??? MMR Vaccine SQ 11/22/1993, 11/19/2015 ??? Meningococcal Conjugate (MCV4) Vaccine (MENACTRA) 4-Valent IM 11/28/2006 ??? Poliovirus Vaccine IPV IM OR SQ 05/07/1990 ? ? Tdap Vaccine =>7YO IM 11/15/2009, 11/16/2015 ??? Varicella (Chickenpox) vaccine (VARIVAX) SQ 05/25/1998 Domestic Violence Screen: Feels safe at home Advance Directive: no, but will work on it No past medical history on file. No past surgical history on file. Family History Problem Relation Age of Onset ??? High Cholesterol Mother ??? High Cholesterol Father ??? Cancer Maternal Grandmother breast Social History Tobacco Use ??? Smoking status: Never Smoker ??? Smokeless tobacco: Never Used Substance Use Topics ??? Alcohol use: Not on file ??? Drug use: Not on file Current Outpatient Medications: ??? ascorbic acid, vitamin C, (VITAMIN C) 500 mg tablet, 1 tab(s) orally once a day, Disp: , Rfl: ??? cholecalciferol, Vitamin D3, 1,000 unit tablet, 1 cap(s) orally once a day, Disp: , Rfl: ??? copper (PARAGARD T 380A INTRAUTERINE), by intrauterine route., Disp: , Rfl: ??? Fish Oil-[place]-3 Fatty Acids (FISH OIL) 360-1,200 mg capsule, 1 cap by mouth daily, Disp: , Rfl: ??? TURMERIC ORAL, Take by mouth., Disp: , Rfl: I have reviewed patient's medication list, past medical history, social history, and family history and updated as appropriate on 01/27/2020. ROS: Review of Systems Constitutional: Negative for weight loss. Psychiatric/Behavioral: The patient is nervous/anxious. Objective: Examination: Vitals: BP 118/68 Pulse 64 Resp 16 Ht 157.5 cm (62) Wt 49.6 kg (109 lb 6.4 oz) BMI 20.01 kg/m?? Body mass index is 20.01 kg/m??. Physical Exam Constitutional: Appearance: She is well-developed. HENT: Head: Normocephalic and atraumatic. Right Ear: External ear normal. Left Ear: External ear normal. Eyes: Conjunctiva/sclera: Conjunctivae normal. Pupils: Pupils are equal, round, and reactive to light. Neck: Musculoskeletal: Normal range of motion and neck supple. Thyroid: No thyromegaly. Cardiovascular: Rate and Rhythm: Normal rate and regular rhythm. Heart sounds: Normal heart sounds. No murmur. No friction rub. No gallop. Pulmonary: Effort: Pulmonary effort is normal. Breath sounds: Normal breath sounds. No wheezing or rales. Chest: Breasts: Right: No inverted nipple, mass, nipple discharge, skin change or tenderness. Left: No inverted nipple, mass, nipple discharge, skin change or tenderness. Abdominal: General: Bowel sounds are normal. There is no distension. Palpations: Abdomen is soft. There is no mass. Tenderness: There is no abdominal tenderness. There is no guarding or rebound. Genitourinary: General: Normal vulva. Exam position: Supine. Labia: Right: No rash, tenderness, lesion or injury. Left: No rash, tenderness, lesion or injury. Cervix: Normal. Uterus: Deviated (left). Adnexa: Right adnexa normal and left adnexa normal. Musculoskeletal: Normal range of motion. Lymphadenopathy: Cervical: No cervical adenopathy. Skin: General: Skin is warm and dry. Neurological: Mental Status: She is alert and oriented to person, place, and time. Data reviewed with patient (past results): No results found for this or any previous visit. Assessment & Plan: Onelia was seen today for annual exam. Diagnoses and all orders for this visit: Encounter for well adult exam without abnormal findings - Age-appropriate counseling, vaccines, screening labs, and tests discussed and ordered. - Injury prevention and high risk lifestyle has been reviewed with patient. - Depression screening questions reviewed. - Weight reviewed, and patient recommended to continue current healthy lifestyle patterns and returnfor routine annual checkups. Return if symptoms worsen or fail to improve. Melva Covington MD, FAAFP ngelique Mckinley RN - 01/27/2020 1320 EDT Due for Tdap, varicella #2. - CD documented in this encounter Plan of Treatment Not on filedocumented as of this encounter Visit Diagnoses Diagnosis Encounter for well adult exam without ab normal findings - Primary documented in this encounter Discontinued Medications Medication Sig Discontinue Reason Start Date End Date multivitamin capsule 1 cap(s) orally once a 01/27/2020 day documented as of this encounter Historical Medications This list may reflect changes made after this encounter. Medication Sig Dispensed Refills Start Date End Date TURMERIC ORAL Take by mouth. 0 021 added in this encounter Care Teams Strategic Analyst Relationship Specialty Start Date End Date Melva Covington MD PCP - General Family Medicine - Primary 04/27/19 Care documented as of this encounter
--- OUTSIDE RECORDS SUMMARY | 2021-11-03 20:26 | XMS_ITS | Encounter Summary ---
:[address] [facility] Address [address] [place] [address] Care Team Providers Name Role Phone Unknown, Provider Primary Care Provider Melva Covington MD Primary Care Provider Reason for Visit Reason Onset Date Comments Establish Care 04/12/2019 Encounter Details Date Type Department Care Team Description 04/12/2019 Telephone [facility] [place] [facility] [place] Unknow n, Provider, Establish [facility] Family Medicine [facility] [address] [place] [address] Social History Tobacco Use Types Packs/Day Years [...] Notes Telephone Encounter - Stephane Renee - 04/28/2019 1641 EST Patient called office and was sched with [facility] on 05/09/2019 at 10am. elephone Encounter - Melisa Garcia - 04/28/2019 0910 EST Lm for pt to call ifmm to schedule re est care ov with rc. elephone Encounter - Lisa Egan RN - 04/27/2019 1658 EST Ok to re-establish - no need to add him to the wait list. elephone Encounter - Melisa Garcia - 04/26/2019 0938 EST Pt last seen by ifmm in 2015. Ok to re est or should we add to [facility] wait list? Please advise. Telephone Encounter - Rebecca Duenas - 04/12/2019 1004 EST Pt looking for new PCP, would like to get Re-established with RC if possible. documented in this encounter Plan of Treatment Not on filedocumented as of this encounter Visit Diagnoses Not on filedocumented in this encounter Care Teams Master Rigger Relationship Specialty Start Date End Date Unknown, Provider, PCP - General 10/02/14 04/26/19 Melva Covington MD PCP - General Family Medicine - Primary 04/27/19 Care documented as of this encounter
--- OUTSIDE RECORDS SUMMARY | 2021-11-03 20:26 | XMS_ITS | Encounter Summary ---
:1990 Author Organization [facility] Address [address] [place] [address] Care Team Providers Name Role Phone Melva Covington MD Primary Care Provider Reason for Visit Reason Comments Establish Care Encounter Details Date Type Department Care Team Description 09/16/[address] [facility] [place] - Melva Covington Viral illness (Primary Dx); [facility] Akua Jessica MD Dyspareunia, female Medicine - [address] [place] [address] [phone] Social History Tobacco Use Types Packs/Day Years [...] Pressure - - Pulse - - Temperature 36.8 ??C (98.2 ??F) 09/16/2019804 EDT Respiratory Rate - - Oxygen Saturation - - Inhaled Oxygen Concentration - - Weight 47.6 kg (105 lb) 09/16/2019804 EDT Height 157.5 cm (5' 2) 09/16/2019804 EDT Body Mass Index 19.2 09/16/2019804 EDT documented in this encounter Progress Notes Melva Covington MD - 09/16/2019 8960 EDT [facility] Video Visit Today's visit was provided through [...] or auxiliary staff: yes. Subjective: Chief Complaint(s): Establish Care HPI: 29 yo F who recently moved back to the area after going to school in [place]. She recently developed a Cough, ST, and body aches. No fever. She is a bit worried about COVID, but is not sure that she wants to be tested yet. She is isolating, but she lives in a small cabin with her fiancee, and does not want to give it to him. 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 She is studying for her OTboards at home. She also has had some Dyspareunia in one position only. No new sexual partners. Normal pap and HPV less then a year ago. No vaginal d/c. No fever. No pelvic pain any other time. She does have a ParaGard IUD, and her periods are regular and not particularly heavy. I have reviewed patient's tobacco history: reports that she has never smoked. She has never used smokeless tobacco. I have reviewed current problem list and current medications. ROS: Review of Systems Constitutional: Negative for fever. HENT: Positive for sore throat. Genitourinary: Dyspareunia Musculoskeletal: Positive for myalgias. Objective: Examination: Home Vitals: Temp 36.8 ??C (98.2 ??F) Ht 157.5 cm (62) Wt 47.6 kg (105 lb) BMI 19.20 kg/m?? Pertinent exam findings: appears well, neck supple, non-labored breathing and mood and affect appropriate Data reviewed with patient: Reviewed and/or ordered active problem list, medication list, allergies,family history, social history, notes from last encounter, lab results tests No results found for this or any previous visit. Assessment & Plan: Onelia was seen today for establish care. Diagnoses and all orders for this visit: Viral illness Comments: Offered to order a COVID test, but she wanted to wait, and she will call if her symptoms worsen. Dyspareunia, female Comments: DDx: Shift in IUD, ovarian cyst, ovarian mass. Will wait 6 weeks, and if no resolution of the symptoms, will get a TVUS. Return in about 3 months (around 12/16/2019) for CPE, please obtain records from [place]. I spent a total of 35 minutes in discussion with the patient as described in the progress note. The following individuals and their role did participate in today's encounter visit: Provider: Melva Covington MD Patient documented in this encounter Plan of Treatment Not on filedocumented as of this encounter Visit Diagnoses Diagnosis Viral illness - Primary Unspecified viral infection, in conditio ns classified elsewhere and of unspecified site Dyspareunia, female Dyspareunia documented in this encounter Historical Medications This list may reflect changes made after this encounter. Medication Sig Dispensed Refills Start Date End Date ascorbic acid, vitamin C, 1 tab(s) orally 0 08/07/2020 (VITAMIN C) 500 mg tablet once a day cholecalciferol, Vitamin 1 cap(s) orally 0 05/21/2021 D3, 1,000 unit tablet once a day multivitamin capsule 1 cap(s) orally 0 01/27/2020 once a day Fish Oil-[place]-3 Fatty 1 cap by mouth 0 08/07/2020 Acids (FISH OIL) 360-1,200 daily mg capsule added in this encounter Care Teams Director Commercial Sales Relationship Specialty Start Date End Date Melva Covington MD PCP - General Family Medicine - Primary 04/27/19 Care documented as of this encounter
--- OUTSIDE RECORDS SUMMARY | 2021-11-03 20:26 | XMS_ITS | Encounter Summary ---
:1990 Author Organization [facility] Address [address] [place] [address] Care Team Providers Name Role Phone Unknown, Provider Primary Care Provider Encounter Details Date Type Department Care Team Description 08/09/2015 Historical Results Only [facility] - Melva Covington [facility] - Main [facility] MD Panchito Jessica [address] [address] [place], [place] [phone] Social History Tobacco Use Types Packs/Day Years [...] Name Priority Date/Time Associated Diagnosis Comme nts PAP TEST Routine 08/09/2015 9:25 EDT Results for this procedure are i n the results section . documented in this encounter Results PAP TEST (08/09/2015 9:25 EDT) Specimen Narrative [facility] - 016 10:58 EDT Name: ONELIA THOMAS ?: [birth year] ?Age/Sex: 28/F ?Unit#: [id number] ? Loc: MHC ? Status: REG POV ?? Reg Date: 08/09/15 ? Pt.Phone Number : ? Specimen: [id number] ?STA TUS: SOUT ?Spec Date:08/09/15 ? Physician Copies: ?Melva Covington MD ?? Tissues: ? Cervical/Endo Pap ? CPT: 63994 ?? Units: ??1 ? CYTOLOGY DIAGNOSIS SPECIMEN ADEQUACY: ?Satisfactory for evaluation. Transformation zone component present. GENERAL CATEGORIZATION: ?Negative fo r Intraepithelial Lesion or Malignancy DESCRIPTIVE DIAGNOSIS: ? Negative fo r Intraepithelial Lesion or Malignancy. ORDER QUERIES: LMP: 08/09/15- ?Preg nant? N Post ? N ??PREVIOUS ATYPICAL: N BCP/HRT? N Rad Rx? N IUD? Y ??PAP PLUS HPV? N ??REFLEX TO HR-HPV IF ASCUS Y REFLEX TO HPV 16/18 IF HPV POS/PAP NEG Y HPV REGARDLESS? N ??RFLX HPV IF LSIL ?? Signed ____(signature on file)____ Mari Peterson M.D. 08/15/15 By the signature above, the attending ph ysician certifies that he/she has personally conducted a gross and/or microscopic exa mination of the described specimens and rendered or confirmed the above diagnosi s. Test Performed by [facility], [address] [facility] [address] Striker Off: Mari Argueta MD PHD Performing Organization Address City/State/ZIP Code Phon e Number [facility] [address] [place] [address] [facility] documented in this encounter Visit Diagnoses Not on filedocumented in this encounter Care Teams Jacquard Loom Carpet Weaver Relationship Specialty Start Date End Date Unknown, Provider, PCP - General 10/02/14 04/26/19 documented as of this encounter
--- OUTSIDE RECORDS SUMMARY | 2021-11-03 20:26 | XMS_ITS | Encounter Summary ---
:1990 Author Organization [facility] Address [address] [place] [address] Care Team Providers Name Role Phone Melva Covington MD Primary Care Provider Reason for Visit Reason Onset Date Comments Results 02/07/2020 Encounter Details Date Type Department Care Team Description 02/07/2020 Telephone [facility] [place]va Gonzalez MD Results [facility] - [address] [place], [place] [phone] [place] [address] [phone] Social History Tobacco Use Types Packs/Day Years [...] Telephone Encounter - Joanna Dave LPN - 02/07/2020 1413 EDT TM left for pt with normal labs elephone Encounter - Joanna Dave LPN - 02/07/2020 1411 EDT ----- Message from Melva Covington MD sent at 02/07/2020 11:40 EDT ----- Tell patient results are normal. documented in this encounter Plan of Treatment Not on filedocumented as of this encounter Visit Diagnoses Not on filedocumented in this encounter Care Teams Circular Knife Machine Cutter Relationship Specialty Start Date End Date Melva Covington MD PCP - General Family Medicine - Primary 04/27/19 Care documented as of this encounter
--- OUTSIDE RECORDS SUMMARY | 2021-11-03 20:26 | XMS_ITS | Encounter Summary ---
:1990 Author Organization [facility] Address [address] [place] [address] Care Team Providers Name Role Phone Melva Covington MD Primary Care Provider Reason for Visit Reason Comments Other Encounter Details Date Type Department Care Team Description 02/06/2020 Office Visit [facility] - Melva Covington Menorr hagia with regular cycle (Primary Dx); [facility] Akua Jessica MD Exposure to cat feces, initial encounter ; Family Medicine - [address] Exposure t o cytomegalovirus (CMV); [facility] Dry skin; [address] [place], [place] Encounter for preconception consultation; [place] [phone] Encounter for IUD removal [phone] Social History Tobacco Use Types Packs/Day Years [...] EDT Pulse 70 02/06/2020 1521 EDT Temperature - - Respiratory Rate 16 02/06/2020 1521 EDT Oxygen Saturation - - Inhaled Oxygen Concentration - - Weight 49.4 kg (109 lb) 02/06/2020 1521 EDT Height 157.5 cm (5' 2.01) 02/06/2020 1521 EDT Body Mass Index 19.93 02/06/2020 1521 EDT documented in this encounter Ordered Prescriptions Prescription Sig Dispensed Refills Start Date End Date vit Take 1 Capsule by 90 Cap 4 02/06/2020 19-dkyc-plvwg-dha 27mg mouth daily. iron- 800 mcg-250 mg capsuleIndications: Encounter for preconception consultation vit Take 1 Capsule by 90 Cap 4 02/06/202002/05 22-vcjq-qqrgx-dha 27mg mouth daily. iron- 800 mcg-250 mg capsuleIndications: Encounter for preconception consultation documented in this encounter Progress Notes Ivan Perez LPN - 02/06/2020 1520 EDT Performed by IVAN PEREZ LPN Site Collected Left Antecubital Space Volume Withdrawn STT; 8.5ml Patient Response Patient tolerated venipuncture well, Number of attempts 1 and Butterfly used Ordering Provider Elias ONETTETCrand, Melva Jessica MD - 02/06/2020 1520 EDT Images from the original note were not included. [facility] Primary Care Subjective: Chief Complaint(s): Other HPI: Onelia is a 29 year old woman with no significant medical history presenting for IUD removal and pre- counseling. Questions discussed today were: 1. How long should cramping last post IUD removal? 2. What immunizations/bloodwork should be done preconception? 3. Continue fish oil, turmeric, vit D, vit C? 4. Any issue with continuing to drink herbal teas? 5. Is 19.9 too low of a BMI for conception? I have reviewed patient's tobacco history: reports that she has never smoked. She has never used smokeless tobacco. I have reviewed current problem list and current medications. ROS: Review of Systems Constitutional: Negative for fever. Objective: Examination: Vitals: BP 98/64 Pulse 70 Resp 16 Ht 157.5 cm (62.01) Wt 49.4 kg (109 lb) BMI 19.93 kg/m?? Body mass index is 19.93 kg/m??. Physical Exam Constitutional: General: She is not in acute distress. HENT: Head: Normocephalic and atraumatic. Eyes: General: No scleral icterus. Right eye: No discharge. Left eye: No discharge. Genitourinary: Exam position: Supine. Pubic Area: No rash. Labia: Right: No tenderness or lesion. Left: No tenderness or lesion. Vagina: Normal. Cervix: Normal. Skin: General: Skin is warm and dry. Neurological: Mental Status: She is alert and oriented to person, place, and time. Psychiatric: Behavior: Behavior normal. Data reviewed with patient (past results): No results found for this or any previous visit. Assessment & Plan: Onelia was seen today for other. Diagnoses and all orders for this visit: Menorrhagia with regular cycle - POCT HEMOGLOBIN Exposure to cat feces, initial encounter - TOXOPLASMA AB, IGM, S; Future Exposure to cytomegalovirus (CMV) - CMV IGG; Future - CYTOMEGALOVIRUS (CMV) AB, IGM, S; Future Dry skin - TSH; Future Encounter for preconception consultation Comments: -Perform baseline hemoglobin, toxoplasmosis/CMV screen, and TSH level. -Can continue supplements and herbal teas -Reassured BMI is consistent and normal Orders: - Discontinue: vit 24-khst-lbhcm-dha 27mg iron- 800 mcg-250 mg capsule; Take 1 Capsule by mouth daily. - vit 00-gmib-srsah-dha 27mg iron- 800 mcg-250 mg capsule; Take 1 Capsule by mouth daily. Encounter for IUD removal Comments: Discussed that cramping should maximally last 3-4 days. Contact if bleeding is more than a light period or cramping persists. Take ibuprofen if needed. IUD Removal Procedure Note: Verbal and written informed consent obtained, risks and possible side effects reviewed. Speculum inserted. Strings visualized protruding from internal os. Ring forceps used to grasp strings and remove IUD in its entirety. IUD shown to patient Patient tolerated well Melva Covington MD Return if symptoms worsen or fail to improve. Melva Covington MD, FAAFP documented in this encounter Plan of Treatment Scheduled Orders Name Type Priority Associated Diagnoses Order S chedule POCT HEMOGLOBIN Point of Care Routine Menorrhagia with Ordered : 02/06/2020 Testing regular cycle documented as of this encounter Procedures Procedure Name Priority Date/Time Associated Diagnosis Comme nts CMV IGG, IGM RESULT Routine 02/06/2020 16:05 Menorrhagia with Results for this EDT regular cycle procedure are in the results section. TOXOPLASMA AB, IGM, Routine 02/06/2020 16:05 Menorrhagia with Results for this S EDT regular cycle procedure are in the results section. TSH Routine 02/06/2020 16:05 Menorrhagia with Results for this EDT regular cycle procedure are in the results section. documented in this encounter Results TOXOPLASMA AB, IGM, S (02/06/2020 16:05 EDT) TOXOPLASMA AB, IGM Negative Negative [facility] Comment: [facility] No IgM antibodies to T. gondii detected. Results may b e negative in patients with recent infection or who are significantly immunosuppressed. Test Performed by: [place] [address] Crystal Grower: Tavo Fitch M.D. Ph.D.; CLIA# [id number] Specimen Performing Organization Address City/[facility] Phon e Number [facility] [address] [phone] CMV IGG, IGM RESULT (02/06/2020 16:05 EDT) CMV IGG - [facility] Negative Negative [facility] Comment: [facility] Test Performed by: [place] [address] Crystal Grower: Tavo Fitch M.D. Ph.D.; CLIA# [id number] Cytomegalovirus Ab, Negative Negative [facility] IgM, S [facility] Specimen Performing Organization Address City/[facility]/ZIP Code Phon e Number [facility] [address] [place] [address] TSH (02/06/2020 16:05 EDT) THYROID STIM 1.43 0.46 - 4.68 [facility] Comment: uIU/ml [facility] The results of this assay can be falsely lowered due t o the consumption of Biotin. Specimen Performing Organization Address City/[facility] Phon e Number [facility] [address] [place] [address] documented in this encounter Visit Diagnoses Diagnosis Menorrhagia with regular cycle - Primary Excessive or frequent menstruation Exposure to cat feces, initial encounter Exposure to cytomegalovirus (CMV) Dry skin Other specified disease of sebaceous gla nds Encounter for preconception consultation Other procreative management counseling and advice Encounter for IUD removal Encounter for removal of intrauterine co ntraceptive device documented in this encounter Discontinued Medications Medication Sig Discontinue Reason Start Date End Date vit Take 1 Capsule by 02/06/2020 02/06/2020 75-llol-jvyms-dha 27mg mouth daily. iron- 800 mcg-250 mg capsuleIndications: Encounter for preconception consultation documented as of this encounter Care Teams Central Supply Worker Relationship Specialty Start Date End Date Melva Covington MD PCP - General Family Medicine - Primary 04/27/19 Care documented as of this encounter
--- OUTSIDE RECORDS SUMMARY | 2021-11-03 20:26 | XMS_ITS | Encounter Summary ---
:1990 Author Organization [facility] Address [address] [place] [address] Care Team Providers Name Role Phone Unknown, Provider Primary Care Provider Encounter Details Date Type Department Care Team Description 09/24/2014 Historical Results [facility] Rinku Heard, [facility]GRO Only [facility] Radiology [address] [facility] [address] [place] [address] [phone] (Wo rk) Social History Tobacco Use Types [...] Name Priority Date/Time Associated Diagnosis Comme nts XR TOE LEFT 2 OR 09/24/2014 17:37 Results for this MORE VIEWS EDT procedure are i n the results section. documented in this encounter Results XR TOE LEFT 2 OR MORE VIEWS (09/24/2014 17:37 EDT) Specimen Narrative RADIOLOGY - 09/24/2014 22:09 EDT ? EXAM: RADIOLOGY EXPRESS CARE/EXP CARE XR ??EX. D/ (1737) ? CLINICAL INFORMATION: ? LEFT PINKY TOE DEFORMITY AND ECCH YMOSIS AFTER CONTRA-DANCING ? Patient Name: Onelia Anne ? Date of : 1990 ? Exam: XR TOES ? Date of Exam: 09/24/2014 ? Referring Physician: Félix leonardo ? Clinical History: LEFT PINKY TOE DEFORMITY AND ECCHYMOSIS AFTER ? CONTRA-DANCING ? FINAL REPORT ? EXAM: ? XR Left Toe(s), 2 or More Views. ? CLINICAL HISTORY: ? 24 years old, female; Left pinky toe deformity and ecchymosis after ? contra-dancing ? TECHNIQUE: ? Frontal, lateral and oblique view s of toe(s) of the left foot. ? COMPARISON: ? No comparison study is provided. ? FINDINGS: ? SOFT TISSUES: Soft tissue swellin g/hematoma in the fifth digit. No ? radiopaque foreign body. ? JOINTS: Unremarkable. No dislocat ion. ? BONES: Displaced spiral-type frac ture of the fifth proximal phalanx, ? possibly somewhat comminuted. ? IMPRESSION: ? 1. Displaced spiral-type fracture of the fifth proximal phalanx, ? possibly somewhat comminuted. ? 2. Other findings as indicated. ? ----Thank you for letting us part icipate in the care of your patient. ? This report was generated using v oice recognition software.---- ? PAGE 1 ? Elizabeth d Report ? (CONTINUED) ? Dictated, Authenticated, and Elec tronically Signed by: Saeed Montano on ? 09/24/2014 at 5:45:54PM ?Reported B y: Saeed Montano MD ? CC: ? Transcribed Date/Time: 09/24/2014 (2209) ? Gallery Host: ANAMARIA ? Printed Date/Time: 11/01/2018 (20 16) ? PAGE 2 ? Elizabeth d Report ? Procedure Note Saeed Montano D - 03/29/2019 EXAM: RADIOLOGY EXPRESS CARE/EXP CARE X R EX. D/ (1737) CLINICAL INFORMATION: LEFT PINKY TOE DEFORMITY AND ECCHYMOSIS AFTER CONTRA-DANCING Patient Name: Onelia Anne Date of : 1990 Exam: XR TOES Date of Exam: 09/24/2014 Referring Physician: Félix Sheffield Clinical History: LEFT PINKY TOE DEFORM ITY AND ECCHYMOSIS AFTER CONTRA-DANCING FINAL REPORT EXAM: XR Left Toe(s), 2 or More Views. CLINICAL HISTORY: 24 years old, female; Left pinky toe de formity and ecchymosis after contra-dancing TECHNIQUE: Frontal, lateral and oblique views of t oe(s) of the left foot. COMPARISON: No comparison study is provided. FINDINGS: SOFT TISSUES: Soft tissue swelling/ivanna blair in the fifth digit. No radiopaque foreign body. JOINTS: Unremarkable. No dislocation. BONES: Displaced spiral-type fracture o f the fifth proximal phalanx, possibly somewhat comminuted. IMPRESSION: 1. Displaced spiral-type fracture of th e fifth proximal phalanx, possibly somewhat comminuted. 2. Other findings as indicated. ----Thank you for letting us participat e in the care of your patient. This report was generated using [employer] software.---- PAGE 1 Signed Report (CONTINUED) Dictated, Authenticated, and Electronic ally Signed by: Saeed Montano on 09/24/2014 at 5:45:54PM Reported By: Saeed Montano MD CC: Transcribed Date/Time: 09/24/2014 (4525 ) Gallery Host: ANAMARIA Printed Date/Time: 11/01/2018 (2015) PAGE 2 Signed Report Performing Organization Address City/State/ZIP Code Phon e Number RADIOLOGY documented in this encounter Visit Diagnoses Not on filedocumented in this encounter Care Teams Certified Income Tax Preparer Relationship Specialty Start Date End Date Unknown, Provider, PCP - General 10/02/14 04/26/19 documented as of this encounter
--- OUTSIDE RECORDS SUMMARY | 2021-11-03 20:26 | XMS_ITS | Encounter Summary ---
:1990 Author Organization [facility] Address [address] [place] [address] Care Team Providers Name Role Phone Unavailable Primary Care Provider Unavailable Encounter Details Date Type Department Care Team Description 09/24/2014 Hospital Encounter [facility] Stephanie Unknown, Provider, [facility] [address] [facility] [phone] [place] [address] (Work) [phone] Social History Tobacco Use Types Packs/Day Years [...] on file documented as of this encounter Discharge Disposition Disposition Code Departure Means Destination Home or Self Half-Way documented in this encounter Plan of Treatment Not on filedocumented as of this encounter Visit Diagnoses Not on filedocumented in this encounter
[2021-11-03] MEDS: Lactated Ringers 500 ML IV (20:55)
--- NOTE | 2021-11-03 20:55 | HPE_ITS ---
Date of service: 11/03/21 Time of Service: 20:55 Assessment and Plan Assessment and plan (1) Vomiting affecting , antepartum: Status: Acute Assessment and plan: admit to the center, Start IV fluids LR 500 cc bolus and continue to assess. Consider anti-emetic therapy if vomiting persists and she does not tolerate PO fluids. CBC, CMP, lipase and amylase tests ordered OB-HPI Labor/Delivery History of Present Illness Reason for Visit: RULE OUT LABOR Chief Complaint: Illness (vomiting) , Associated Signs and Symptoms of Illness: none. [place] Calculator Estimated Delivery Date Method Current WG Current Estimate 01/08/22 LMP (Certain) 30w 4d Other Estimates 01/08/22 Ultrasound #1 30w 4d Comments: Onelia called approximately 4 hours prior to admission and spoke to Sheryl Espinoza CNM. She had been vomiting for an hour and was concerned due to oral bleeding. Onelia's partner was not ill. Sheryl called her back after 3 hours and Onelia reported that she was still vomiting and she was instructed to come to the center for evaluation. Her has been complicated by bnausea and vomiting and she reported to sheryl that she vomits 2 times weekly. She takes diclegis PRN. She arrived drinking a juice drink that she brought from home. She had taken zofran ODT 4 mg at 1845 and a second dose at 1920 at home prior to admission. She reports that she is feeling better now. She is admitted for observation and possibly anti-emetic therapy if indicated. History of Present Expected Delivery Route/Plan - CNM FOB/ - Bi Holguin (first child) Doesn't want to know gender Specific Issues/Plan 1. Onelia and Bi are vaccinated against covid-19. Onelia received booster Jul 02. 2. Family hx - pat. uncle with ASD - accepted level 2 US & MFM consult @ [facility], [facility]ed for 08/23/21 2a. Level II US normal, [facility] did not recommend echo 3. Nausea vomiting and weight loss- Taking Declegis 12.5 (1/2 tab) at HS, hesitant to take ondansetron 4. anxiety - seeing a counselor, no meds currently 5. Serum genetic testing options reviewed- panorama and SMA drawn. CF declined initially, changed her mind 5a. CF/SMA neg. Panorama neg, 22q11.2 deletion not done which pt desires, redrawn 07/18: result low risk. AFP=nml risk NTD, 6. TSH 0.08 / T4 1.22, repeat in 2nd trimester, drawn @ 15 wks 07/18/21 TSH 0.15 increasing, reviewed by Dr. Hameed who states no further intervention is required in workload. 6a. TSH discussed w/pt, advised T4=nml, no redraw indicated, pt asymptomatic but remains concerned, may request recheck in third trimester. 6b. Will get repeated at [facility] 10/22 as well as US for fibroids, showed increased number of fibroids. recommendation would be for delivery at tertiary care facility. 6c. Has US [facility] 11/13 for fibroids to assess for growth___ 7. Pt desires LC consult prior to delivery, refer at 36 wks ___ 8. soft tissue US for lump on right demonstrates several fibroids one on right corresponds to area of palpable lump 8a. Repeat US at 28 weeks, referral to [facility] placed 09/09/21 as patient prefers follow up there, sched'ed for 10/22/21 9. Onelia prefers to do a 75 gm fasting 2 hour glucose screening instead of a 1 hour and potential 3 hour test. She would do home BG testing if indicated by 2 hour test. 2 hour WNL X 3 levels, 82/106/111 PFSH All Active Problems (Updated 11/03/21 @ 20:59 by Shannan Lincoln CNM) Vomiting affecting , antepartum (Acute) Uterine fibroids affecting (Acute) Lead exposure (Acute) Abdominal wall mass (Acute) Low TSH level (Acute) Anxiety (Chronic) Migraine headache with aura (Acute) Nausea/vomiting in (Acute) (Acute) Medical History (Updated 11/03/21 @ 20:59 by Shannan Lincoln CNM) Family history of congenital cardiac septal defect Family history of melanoma mother Family History (Updated 07/10/21 @ 12:13 by Shannan Lincoln CNM) Maternal Grandmother Diabetes Breast cancer Maternal Uncle Pancreatic cancer Mother Melanoma Uncle ASD (atrial septal defect) Social History (System 06/05/21 @ 07:53 by Eve Eddy) Smoking risk assessment performed?: No Current gender identity: female History History 1 Para 0 Hx # Term Pregnancies 0 Multiple births 0 Hx # Pregnancies 0 Ectopic pregnancies 0 AB induced 0 Hx Number of Living Children 0 AB spontaneous 0 Meds Allergies and Home Medications Allergies Allergy/AdvReac Type Severity Reaction Status Date / Time No Known Allergies Allergy Verified 11/01/21 14:38 Home Medications Medication Instructions Recorded Confirmed Type docosahexaenoic acid 200 mg mg PO 06/04/21 10/25/21 History capsule ( DHA) prenat.vits,kate,avf-vbsx-uolof 1 tab PO DAILY 06/04/21 10/25/21 History Iron Bisglycinate 1 tab PO DAILY 10/25/21 10/25/21 History doxylamine 10 mg-pyridoxine (vit 1 tab PO DAILY #30 tabs 10/30/21 Rx B6) 10 mg tablet,delayed release (Diclegis) Exam Physical Exam Vital signs: Pulse BP 82 101/65 11/03/21 20:27 11/03/21 20:27 Constitutional Constitutional: no acute distress (sitting up in bed and states she is feeling better) Detailed Labor and Delivery Exam Feldman Score: Cervical Points Exam 0 1 2 3 Dilation Closed 1-2cm 3-4 cm 5-6cm Effacement 0-30% 40-50% 60-70% 80% Consistency Firm Medium Soft Station -3 -2 -1,0 +1,+2 Position Posterior Mid Anterior Monitor Mode: External Contraction Frequency(min): every 3-4 Contraction Duration(sec): 50 Contraction Intensity: Mild Fetus A Heart Rate Baseline: 150 Monitor Accelerations: 15 X 15 Monitor Decelerations: None Variability: Moderate (6-25 BPM) Categories: Category I Respiratory Exam Respiratory Exam: Normal Cardiovascular Exam Cardiovascular Exam: Normal Abdominal Exam Abdominal Exam: Normal (mild discomfort in upper abdomen) Psychiatric Exam Psychiatric Exam: Normal Risk Assessment Risk for Shoulder Dystocia Historical/Initial OB: NEGATIVE FOR: Pelvic Abnormality, Pre- BMI>30, Previous Shoulder Dystocia or Previous Macrosomia Risk for Pre-Eclampsia Date Initiated/Initials: not indicated Yes, if one or more: NEGATIVE FOR: Hx Pre-E/Gest HTN, Chronic HTN, Multiple Gestation, Pre-gestational DM, Renal Disease, Systemic Lupus or APA Syndrome Yes, if 2 or more: POSITIVE FOR: Nulliparity; NEGATIVE FOR: Age>= 35 yrs, >10yr btwn pregnancies, BMI>30, ethinicty, Mother/Sister w/ Pre-E or Previous IUGR Risk for Post- Hemorrhage Initial: NEGATIVE FOR: Multiple Gestation, Previous PPH, Known Clotting Deficiency, Grand Multiparity or Anticoagulation Risks Reviewed Risks Reviewed Upon Admission: Yes
[2021-11-03 21:16] LABS: Abs Immature Grans 0.18 10^3/uL (0.0-0.06); Absolute Basophil Count 0.07 10^3/uL (0.0-0.2); Absolute Lymphocyte Count 1.04 10^3/uL (1.2-3.4); Absolute Neutrophil Count 21.58 10^3/uL (1.2-6.7); Basophils % 0.3; HCT 39.6 % (36.0-46.0); HGB 13.4 g/dL (11.2-15.7); Immature Grans % 0.8; Lymphocytes % 4.5; MCH 29.1 pg (27.0-33.0); MCHC 33.8 % (32.0-36.0); MCV 86 fL (80-95); MPV 10.2 fL (8.0-11.0); Monocytes % 1.3; Neutrophils % 93.1; Platelet Count 247 10^3/uL (130-400); RDW 12.5 % (11.7-14.6); WBC 23.18 10^3/uL (4.4-10.8)
[2021-11-03 21:32] LABS: Diff Comment Agrees w/ Instrument; RBC Morphology Normal
[2021-11-03 21:36] LABS: ALT 46 U/L (14-59); AST 21 U/L (15-37); Albumin 3.1 g/dL (3.4-5.0); Alkaline Phosphatase 110 U/L (46-116); Anion Gap 11.9 mmol/L (3-11); BUN 11 mg/dL (7-18); Bilirubin, Total 0.3 mg/dL (0.2-1.0); CO2 25.1 mmol/L (21.0-32.0); CREATININE 0.6 mg/dL (0.55-1.02); Calcium 8.6 mg/dL (8.5-10.1); Chloride 102 mmol/L (98-107); Glucose 92 mg/dL (74-106); Potassium 3.8 mmol/L (3.5-5.1); Sodium 139 mmol/L (136-145); Total Protein 6.6 g/dL (6.4-8.2)
[2021-11-03 21:44] LABS: Amylase 113 U/L (25-115); Lipase 196 U/L (73-393)
[2021-11-03] MEDS: Lactated Ringers 1,000 ML 200 ML IV (21:55)
--- NOTE | 2021-11-04 09:55 | W.PM.OBDISCH ---
Date of service: 11/03/21 Time of Service: 23:00 DS: Diagnosis Discharge Diagnosis (1) Vomiting affecting , antepartum: Status: Acute Asessment and Plan: Onelia feels better and she is taking PO fluids without difficulty. Urine dip shows large ketones. PO fluids also encouraged. She is discharged to home and was given instructions to call with recurrence of vomiting. She is instructed to take PO ondansetron at home PRN. I suggested taking a day off from work. Amylase and lipase pending. Will consider abdominal US to assess the gallbladder. Discharge Plan Discharge Details Reason For Visit: RULE OUT LABOR Attending Provider: Shannan Lincoln Primary Care Provider: Jeanie Madrigal Home Meds and New Rx's Prescriptions: No Action Iron Bisglycinate 25 mg tablet 1 tab PO DAILY DHA 200 mg capsule PO prenat.vits,kate,mhk-qaiu-sazfm Tablet 1 tab PO DAILY doxylamine-pyridoxine (vit B6) [Diclegis] 10-10 mg tablet,delayed release (DR/EC) 1 tab PO DAILY Qty: 30 0RF ondansetron 4 mg tablet,disintegrating 4 mg PO Q6H PRN (Reason: nausea and vomiting) Qty: 20 2RF Discharge Instructions Instructions: Labor (DC), Acute Nausea and Vomiting (DC) Activity:: Activity as Tolerated Activity:: Activity as Tolerated Equipment/Supplies:: No Equipment Needed Diet:: As Tolerated Discharge Orders Discharge Orders: Discharge Order (Routine); Ordered 11/04/21 Ordered By: Shannan Lincoln OB:DS Summary Contraception Discussed Contraception Discussed: No, Status at Discharge Functional status at discharge: independent ambulation Overall status at discharge: patient is back to baseline Mental Status: mental status grossly normal Speech and Movement: speech and movement normal Mood: congruent mood Affect: normal affect Exam Physical Exam Vital signs: Pulse BP Pulse Ox 88 101/65 97 11/03/21 22:47 11/03/21 20:27 11/03/21 22:47 PFSH All Active Problems (Updated 11/03/21 @ 20:59 by Shannan Lincoln CNM) Vomiting affecting , antepartum (Acute) Uterine fibroids affecting (Acute) Lead exposure (Acute) Abdominal wall mass (Acute) Low TSH level (Acute) Anxiety (Chronic) Migraine headache with aura (Acute) Nausea/vomiting in (Acute) (Acute) Medical History (Updated 11/03/21 @ 20:59 by Shannan Lincoln CNM) Family history of congenital cardiac septal defect Family history of melanoma mother Family History (Updated 07/10/21 @ 12:13 by Shannan Lincoln CNM) Maternal Grandmother Diabetes Breast cancer Maternal Uncle Pancreatic cancer Mother Melanoma Uncle ASD (atrial septal defect) Social History (System 06/05/21 @ 07:53 by Eve Eddy) Smoking risk assessment performed?: No Current gender identity: female History History 1 Para 0 Hx # Term Pregnancies 0 Multiple births 0 Hx # Pregnancies 0 Ectopic pregnancies 0 AB induced 0 Hx Number of Living Children 0 AB spontaneous 0 DS: Data Vitals/I&O Vitals and I&O: Vital Signs Pulse 88 11/03/21 22:47 Blood Pressure 101/65 11/03/21 20:27 Pulse Oximetry 97 11/03/21 22:47 Intake & Output 11/03/21 11/03/21 11/04/21 11:59 23:59 11:59 Intake Total 500 / 500 Balance 500 / 500 Intake: IV 500 / 500 Data Completed and Pending Labs on day of discharge: Labs from last 24 hours 11/03/21 11/03/21 11/03/21 21:07 20:17 20:17 WBC 23.18 H RBC 4.60 Hgb 13.4 Hct 39.6 MCV 86 MCH 29.1 MCHC 33.8 RDW 12.5 Plt Count 247 MPV 10.2 Immature Gran % 0.8 Neutrophils % 93.1 Lymphocytes % 4.5 Monocytes % 1.3 Eosinophils % 0.0 Basophils % 0.3 Nucleated RBC % 0.0 Absolute Neutrophils 21.58 H Absolute Lymphocytes 1.04 L Absolute Monocytes 0.30 Absolute Eosinophils 0.00 Absolute Basophils 0.07 RBC Morphology Normal Sodium 139 Potassium 3.8 Chloride 102 Carbon Dioxide 25.1 Anion Gap 11.9 H BUN 11 Creatinine 0.6 Estimated GFR/1.73 m2 >= 60.00 Glucose 92 Calcium 8.6 Total Bilirubin 0.3 AST 21 ALT 46 Alkaline Phosphatase 110 Total Protein 6.6 Albumin 3.1 L Amylase 113 Lipase 196
--- NOTE | 2021-11-04 10:00 | W.OBNST ---
Date of service: 11/03/21 Time of Service: 23:00 NST Evaluation Reason for NST Reasons for Nonstress Test: OTHER, SEE COMMENT Reason for NST Other: vomiting Gestational Age Gestational Age in Weeks and Days: 30 Weeks and 4Days Test and Monitor Explained Test/Monitor Explained: Test Explained, Monitor Explained and Patient Verbalized Understanding Vital Signs Blood Pressure: 101/65 Pulse: 82 Temperature: 99.0 F Urine Results Urine Protein: Positive Urine Ketones: Positive Urine Glucose: Negative Urine Blood: Negative NST Information Date on Monitor: 11/03/21 Time on Monitor: 20:24 Date off Monitor: 11/03/21 Time off Monitor: 23:11 Total Time on Monitor: 167 NST Interventions: IV Fluids and Reposition Patient NST Evaluation Patient States Movement: Present FHR Baseline: 135 Variability: Moderate 6-25 bpm Accelerations: 15x15 Decelerations: None NST Results: Reactive Note NST Note Note: Onelia was admitted to observation for vomiting in . She took Po medications at home prior to her arrival which were effective. NST reactive. NST Reviewed and Verified by: Shannan Lincoln
[2021-11-04 10:01] VITALS: BP 101/65; PULSE 82; TEMP 37.2
== END 2021-11-03 20:25 | disposition home or self-care (01) ==
LOC: OBS 11-04 00:18 → BCD 11-04 09:26
PROVIDERS: PCP Family Medicine; Visit Provider Advanced Practice Midwife
DX: O21.2 Late vomiting of pregnancy (principal)
CPT/HCPCS: 59025; 36415; 80053; 83690; 96360; 96361; 82150; 85025

== ENCOUNTER 2021-11-10 08:21 | Outpatient (CLI) | payer BC, SELFPAY ==
[2021-11-10 09:11] VITALS: BP 99/64; PULSE 84; TEMP 36.8
[2021-11-10 09:16] VITALS: BP 89/64; PULSE 78
[2021-11-10 09:17] VITALS: BP 99/64; PULSE 84
[2021-11-10 09:50] LABS: ROM Plus Negative
--- NOTE | 2021-11-11 01:21 | W.OBNST ---
Date of service: 11/10/21 Time of Service: 01:21 NST Evaluation Reason for NST Reasons for Nonstress Test: OTHER, SEE COMMENT Reason for NST Other: Question of ruptured membranes Gestational Age Gestational Age in Weeks and Days: 31 Weeks and 4Days Test and Monitor Explained Test/Monitor Explained: Test Explained, Monitor Explained and Patient Verbalized Understanding Vital Signs Blood Pressure: 99/64 Pulse: 84 Temperature: 98.2 F NST Information Date on Monitor: 11/10/21 Time on Monitor: 09:10 Date off Monitor: 11/10/21 Time off Monitor: 09:46 Total Time on Monitor: 36 NST Interventions: PO Hydration NST Evaluation Patient States Movement: Present FHR Baseline: 130 Variability: Moderate 6-25 bpm Accelerations: 10x10 Decelerations: None NST Results: Reactive Note NST Note Note: Onelia had intercourse earlier and she experienced leaking of fluid with orgasm, She is here to rule out ROM. Negative pooling and neg ROM plus. No evidence of labor. Signs of ROM reviewed. Follow up at [facility]. NST Reviewed and Verified by: Shannan Lincoln
[2021-11-11 01:23] VITALS: BP 99/64; PULSE 84; TEMP 36.8
== END 2021-11-10 10:05 | disposition home or self-care (01) ==
LOC: BCD 08:24 → OBS 09:05
PROVIDERS: PCP Family Medicine; Visit Provider Advanced Practice Midwife
DX: O26.893 Other specified pregnancy related conditions, third trimester (principal); Z3A.31 31 weeks gestation of pregnancy
CPT/HCPCS: 59025; 84112

== ENCOUNTER 2021-12-04 11:07 | Outpatient (CLI) | payer MEDICAID, SELFPAY ==
[2021-12-04 12:14] VITALS: BP 110/76; PULSE 100; TEMP 36.8
[2021-12-04 12:15] VITALS: BP 110/76; PULSE 100
--- NOTE | 2021-12-04 12:24 | PDOC.NST_ITS ---
Date of service: 12/04/21 Time of Service: 12:24 NST Evaluation Reason for NST Reasons for Nonstress Test: OTHER, SEE COMMENT Reason for NST Other: well-being. Gestational Age Gestational Age in Weeks and Days: 35 Weeks and 0Days Test and Monitor Explained Test/Monitor Explained: Test Explained, Monitor Explained and Patient Verbalized Understanding Vital Signs Blood Pressure: 110/76 Pulse: 100 Temperature: 98.2 F NST Information Date on Monitor: 12/04/21 Time on Monitor: 12:10 NST Interventions: PO Hydration NST Evaluation Patient States Movement: Present Note NST Note Note: Onelia has had increase in right upper quadrant pain and vomiting recently. She denies DEJESUS, visual disturbance. She denies signs of labor. She has been worked up for gallbladder disease with negative results last month. Her concern is for other risks such as HELLP. I will repeat labs today for pre-eclampsia but reviewed that this would be unlikely and atypical presentation. Patient reports her anxiety is increased due to the vomiting increasing and just wants to verify there are no other problems today. If labs are WNL will plan discharge to home with plan for her to be seen for her next visit at [facility] as scheduled. NST is reactive and reassuring. BRIAN NST Reviewed and Verified by: Shannan Vizcarra
[2021-12-04 12:27] VITALS: BP 110/76; PULSE 100; TEMP 36.8
[2021-12-04 13:00] LABS: HCT 38.6 % (36.0-46.0); HGB 13.3 g/dL (11.2-15.7); MCH 29.5 pg (27.0-33.0); MCHC 34.5 % (32.0-36.0); MCV 86 fL (80-95); MPV 10.7 fL (8.0-11.0); Platelet Count 244 10^3/uL (130-400); RBC 4.51 10^6/uL (3.93-5.22); RDW 12.9 % (11.7-14.6); RDW-SD 39.5 fL; WBC 13.03 10^3/uL (4.4-10.8)
[2021-12-04 13:19] LABS: ALT 40 U/L (14-59); AST 27 U/L (15-37); Albumin 2.8 g/dL (3.4-5.0); Alkaline Phosphatase 143 U/L (46-116); Amylase 62 U/L (25-115); BUN 10 mg/dL (7-18); Bilirubin, Total 0.3 mg/dL (0.2-1.0); CREATININE 0.6 mg/dL (0.55-1.02); Calcium 8.7 mg/dL (8.5-10.1); Chloride 102 mmol/L (98-107); Glucose 113 mg/dL (74-106); LDH 153 U/L (81-234); Lipase 141 U/L (73-393); Potassium 3.7 mmol/L (3.5-5.1); Sodium 135 mmol/L (136-145); Total Protein 6.1 g/dL (6.4-8.2); Uric Acid 5.3 mg/dL (2.6-6.0)
[2021-12-04 13:21] LABS: COMMENT (LAB VIEW ONLY) 55.03 mg/dL; PROTEIN 7.2 mg/dL; Prot/Crea Ur Ratio 0.13
== END 2021-12-04 13:30 | disposition home or self-care (01) ==
LOC: BCD 11:08 → OBS 12:08
PROVIDERS: PCP Family Medicine; Visit Provider Advanced Practice Midwife
DX: O26.893 Other specified pregnancy related conditions, third trimester (principal); O99.343 Other mental disorders complicating pregnancy, third trimester; O21.2 Late vomiting of pregnancy; R10.11 Right upper quadrant pain; F41.8 Other specified anxiety disorders; Z3A.35 35 weeks gestation of pregnancy
CPT/HCPCS: 59025; 80053; 83690; 85027; 82150; 82565; 83615; 84156; 84550

== ENCOUNTER 2021-12-27 01:39 | Outpatient (CLI) | payer MEDICAID, SELFPAY ==
[2021-12-30 10:23] LABS: Hepatitis B Surface Ag Negative (Negative)
== END 2021-12-27 01:40 | disposition home or self-care (01) ==
LOC: LBO 01:43
PROVIDERS: PCP Family Medicine; Visit Provider Advanced Practice Midwife
DX: Z34.93 Encounter for supervision of normal pregnancy, unspecified, third trimester (principal); Z3A.38 38 weeks gestation of pregnancy; Z11.59 Encounter for screening for other viral diseases
CPT/HCPCS: 36415; 87340

== ENCOUNTER 2021-12-27 10:03 | Outpatient (CLI) | payer MEDICAID, SELFPAY ==
[2021-12-27 10:31] VITALS: BP 119/77; PULSE 61
[2021-12-27 10:36] VITALS: BP 119/77; PULSE 61; TEMP 37.1
[2021-12-27 10:50] VITALS: BP 119/77; PULSE 61; TEMP 37.1
--- NOTE | 2021-12-27 10:59 | W.OBNST ---
Date of service: 12/27/21 Time of Service: 11:00 NST Evaluation Reason for NST Reasons for Nonstress Test: OTHER, SEE COMMENT Reason for NST Other: low baseline in office Gestational Age Gestational Age in Weeks and Days: 38 Weeks and 2Days Test and Monitor Explained Test/Monitor Explained: Test Explained, Monitor Explained and Patient Verbalized Understanding Vital Signs Blood Pressure: 119/77 Pulse: 61 Temperature: 98.7 F NST Information Date on Monitor: 12/27/21 Time on Monitor: 10:26 Date off Monitor: 12/27/21 Time off Monitor: 10:48 Total Time on Monitor: 22 NST Interventions: PO Hydration and Meal Given Contraction Frequency: 0 NST Evaluation Patient States Movement: Present FHR Baseline: 135 Variability: Moderate 6-25 bpm Accelerations: 15x15 Decelerations: None NST Results: Reactive Note NST Note Note: NST is reactive and reassuring. Done today due to FHR 115 in office. Patient is planning to delivery at [facility] but is having only tele health appointments there at this time so she is also seen here for FHR. She is reassured by NST and will return to our office in 1 week for FHR. BRIAN NST Reviewed and Verified by: Shannan Vizcarra
[2021-12-27 11:02] VITALS: BP 119/77; PULSE 61; TEMP 37.1
== END 2021-12-27 11:19 | disposition home or self-care (01) ==
LOC: BCD 10:05 → OBS 10:15
PROVIDERS: PCP Family Medicine; Visit Provider Advanced Practice Midwife
DX: O36.8330 Maternal care for abnormalities of the fetal heart rate or rhythm, third trimester, not applicable or unspecified (principal); Z3A.38 38 weeks gestation of pregnancy
CPT/HCPCS: 59025

== ENCOUNTER 2022-01-27 21:39 | Emergency (ER) | payer MEDICAID, SELFPAY ==
[2022-01-27 21:43] VITALS: BP 113/62; PULSE 68; RESP 16; TEMP 36.6; O2SAT 98
[2022-01-27 22:03] LABS: Bilirubin Negative (Negative); Blood Moderate (Negative); Clarity Sl Cloudy (Clear); Glucose Negative (Negative); Ketones Negative (Negative); Leukocyte Esterase Small (Negative); Nitrite Negative (Negative); Specific Gravity 1.015 (1.005-1.025); Urobilinogen 0.2 EU/dL (Up TO 0.2)
[2022-01-27 22:12] LABS: Bacteria Few HPF (Negative); C & S Indicated? Yes; Casts Negative LPF (Negative); Crystals Negative HPF (Negative); Epithelial Cells Few HPF (Negative); Mucus Negative (Negative); Other Cells Few Renal (Negative)
--- NOTE | 2022-01-27 22:47 | ED.GENADUL_ITS ---
Discharge Plan Disposition Patient Disposition: HOME Condition: Good Discharge Details Clinical Impression: UTI (urinary tract infection) Primary Care Provider: Melva Covington ED Provider: Frank Piña Home Meds and New Rx's Prescriptions: New cephalexin 500 mg capsule 500 mg PO QID 5 Days Qty: 20 0RF No Action Iron Bisglycinate 25 mg tablet 1 tab PO DAILY PRN Label Comments: 11/15/21-takes to accompany without iron. other times takes with iron and doesn't take extra iron supplement. prenat.vits,kate,bnb-flla-jpjad Tablet 1 tab PO DAILY Discharge Instructions Instructions: Urinary Tract Infection in Women (ED) Additional Instructions: At this time you have evidence of urinary tract infection. Please take the antibiotic as directed. If you notice any worsening of your symptoms, or any new symptoms such as vomiting, diarrhea, fever, chills, shortness of breath, chest pain, numbness, weakness, or fainting , please return immediately to the emergency department for reevaluation. Please follow up with your primary care provider as soon as possible for reassessment and reevaluation. As always, it was a pleasure participating in your medical care today. Referrals: Melva Covington [Primary Care Provider] - Discharge Data Discharge Date/Time-TO BE ENTERED AT DEPARTURE: 01/27/22 23:07 Medical Decision Making This is a pleasant 31-year-old female who is about 1 week who presents today for suprapubic pressure with slight increased urinary frequency. She had an uneventful and successful vaginal delivery without a Ventura catheter. Her bleeding has initially decreased, but then over the last day or so it has slightly increased. She does have a history of fibroids and that is why she had her baby at [facility]. But otherwise no other complications. She does admit to small amount of pressure and pain in the suprapubic region, but denies any dysuria. She denies any fever or chills. No other complaints at this time. Physical exam demonstrates well-appearing female, no flank or CVA tenderness, no tachycardia or fever. Urinalysis shows evidence of mild UTI. Symptoms appear inconsistent with endometritis at this point clinically. No purulent vaginal discharge. No pain out of proportion. We will prescribe Keflex. Discussed red flags which to return. I have extensively reviewed the treatment plan and discharge instructions with the patient. I have addressed all patient concerns at this time. The patient was made aware of what symptoms to monitor for that would warrant a return to the emergency department. Discussed the plan with the patient, they demonstrate verbal understanding and agreement with our assessment and plan at this time. The documentation in this chart was dictated using [employer] dictation software. Please excuse any dictation errors. HPI General Date/Time Provider Initiated Documentation: 01/27/22 21:48 . HPI Narrative: This is a pleasant 31-year-old female who is about 1 week who presents today for suprapubic pressure with slight increased urinary frequency. She had an uneventful and successful vaginal delivery without a Ventura catheter. Her bleeding has initially decreased, but then over the last day or so it has slightly increased. She does have a history of fibroids and that is why she had her baby at [facility]. But otherwise no other complications. She does admit to small amount of pressure and pain in the suprapubic region, but denies any dysuria. She denies any fever or chills. No other complaints at this time. Related Data Home Medications Medication Instructions Recorded Confirmed prenat.vits,kate,bdk-khvr-aqwcg 1 tab PO DAILY 06/04/21 01/27/22 Iron Bisglycinate 1 tab PO DAILY PRN 11/15/21 01/27/22 cephalexin 500 mg capsule 500 mg PO QID 5 days #20 caps 01/27/22 Previous Rx's Medication Instructions Recorded cephalexin 500 mg capsule 500 mg PO QID 5 days #20 caps 01/27/22 Allergies Allergy/AdvReac Type Severity Reaction Status Date / Time No Known Allergies Allergy Verified 01/27/22 21:46 General Stated Complaint: Urinary IVAN: 4 Review of Systems All systems reviewed & are unremarkable except as noted in HPI and below PFSH All Active Problems UTI (urinary tract infection) (Acute) Uterine fibroids affecting (Acute) Lead exposure (Acute) Abdominal wall mass (Acute) Low TSH level (Acute) Anxiety (Chronic) Migraine headache with aura (Acute) Nausea/vomiting in (Acute) (Acute) Medical History Family history of congenital cardiac septal defect Family history of melanoma mother Family History Maternal Grandmother Diabetes Breast cancer Maternal Uncle Pancreatic cancer Mother Melanoma Uncle ASD (atrial septal defect) Social History Smoking/Tobacco Use Status: Never Smoking risk assessment performed?: Yes Alcohol Intake: never Drug use: Never Substance use type: does not use Current gender identity: female Do you feel safe at home: Yes Do you feel safe in your relationship?: Yes History History 1 Para 0 Hx # Term Pregnancies 0 Multiple births 0 Hx # Pregnancies 0 Ectopic pregnancies 0 AB induced 0 Hx Number of Living Children 0 AB spontaneous 0 Exam Narrative Exam Narrative: 1.Const: Well-nourished, Well-developed, appearing stated age 2.Eyes: PERRL, no conjunctival injection, and symmetrical lids. 3.ENT: Atraumatic external nose and ears. Moist MM. Neck: Symmetric, trachea midline, No thyromegaly. 4.CVS: +S1/S2, No murmurs or gallops. Peripheral pulses 2+ and equal in all extremities. Brisk capillary refill in all extremities. 5.RESP: Unlabored respiratory effort. Clear to auscultation bilaterally. No wheezes rales or rhonchi 6.GI: Soft, Nontender/Nondistended, No hepatosplenomegaly. No guarding or rebound. Minimal suprapubic tenderness. No flank or CVA tenderness. No pain or McBurney's point, negative Delgado sign. Vaginal exam was performed with linda douglass nurse at bedside, vaginal exam demonstrates minimal dark blood. No active bleeding. 7.MSK: Normocephalic/Atraumatic, Extremities w/o deformity or ttp No cyanosis or clubbing, Normal movement of all extremities 8.Skin: Warm, Dry. No rashes or lesions. 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 Sensation grossly intact, no focal neurologic deficits. 10.Psych: (AAO) x3. Appropriate mood and affect Course Vital Signs Vital signs: Vital Signs Temperature 36.6 C 01/27/22 21:43 Pulse 68 01/27/22 21:43 Respiratory Rate 16 01/27/22 21:43 Blood Pressure 113/62 01/27/22 21:43 Pulse Oximetry 98 01/27/22 21:43 Temperature 36.6 C 01/27/22 21:43 Temperature Source Oral 01/27/22 21:43 Pulse 68 01/27/22 21:43 Respiratory Rate 16 01/27/22 21:43 Respiratory Effort Non-Labored 01/27/22 21:47 Blood Pressure 113/62 01/27/22 21:43 Pulse Oximetry 98 01/27/22 21:43 Pain Level 4 01/27/22 21:43 Lab/Test Results Lab/Test Results: 01/27/22 21:55 Urine - Reflex from Ua Urine Culture - Pending Laboratory Tests Range/Units 01/27/22 21:55 Urine Color (Yellow) Yellow Urine Clarity (Clear) Sl Cloudy Urine pH (5-8) 7.0 Ur Specific [place] (1.005-1.025) 1.015 Urine Protein (Negative) mg/dL Negative Urine Ketones (Negative) mg/dL Negative Urine Blood (Negative) Moderate H Urine Nitrite (Negative) Negative Urine Bilirubin (Negative) Negative Urine Urobilinogen (Up TO 0.2) EU/dL 0.2 Ur Leukocyte Esterase (Negative) Small H Urine RBC (0-2) HPF 5-10 H Urine WBC (0-5) HPF 10-20 H Ur Epithelial Cells (Negative) HPF Few Urine Crystals (Negative) HPF Negative Urine Bacteria (Negative) HPF Few Urine Casts (Negative) LPF Negative Urine Mucus (Negative) Negative Urine Other (Negative) Few Renal Ur Culture Indicated? Yes Urine Glucose (Negative) mg/dL Negative
[2022-01-27] MEDS: Cephalexin 500 MG CAP, 4 CAPS/BTL PO (22:55)
== END 2022-01-27 23:07 | disposition home or self-care (01) ==
PROVIDERS: Emergency Provider Student in an Organized Health Care Education/Training Program; PCP Family Medicine
DX: N39.0 Urinary tract infection, site not specified (principal); N71.9 Inflammatory disease of uterus, unspecified
CPT/HCPCS: 99283; 81003; 81015; 87086; 99284

== ENCOUNTER 2022-01-30 17:21 | Outpatient (REF) | payer MEDICAID, SELFPAY | END 2022-01-30 17:22 | disposition home or self-care (01) | LOC: LBN 17:21 | PROVIDERS: PCP Family Medicine; Visit Provider Advanced Practice Midwife | DX: R10.9 Unspecified abdominal pain (principal) | CPT/HCPCS: 87086 ==

== ENCOUNTER 2022-03-03 02:59 | Outpatient (CLI) | payer MEDICAID, SELFPAY ==
[2022-03-03 13:19] LABS: FREE T4 0.84 ng/dL (0.76-1.46); TSH 1.27 uIU/mL (0.36-3.74)
[2022-03-03 18:23] LABS: T3,Free 3.8 pg/mL (2.8-5.3)
== END 2022-03-03 03:00 | disposition home or self-care (01) ==
LOC: LBO 02:59
PROVIDERS: Advanced Practice Midwife; PCP Family Medicine; Visit Provider Advanced Practice Midwife
DX: R94.6 Abnormal results of thyroid function studies (principal)
CPT/HCPCS: 36415; 84439; 84443; 84481

== ENCOUNTER 2022-03-03 13:03 | Outpatient (REF) | payer MEDICAID, SELFPAY ==
--- NOTE | 2022-03-03 11:00 | PAPFT_PTH ---
PATIENT: Onelia Anne LOC: [facility] U#:[id number] AGE/SX: 31/F ROOM: RE03/03/[address]: Stacy Espinoza CNM : 1990 BED: DIS: 03/03/2022 SPEC #: [id number] RECD: 03/03/22 13:07 STATUS: EDILMA REQ #: [id number] PEPE: 03/03/22 11:[address]: Stacy Espinoza DEPT: [facility] Cytology RECD BY: Padmini Slaughter ENTERED: 03/03/22 13:08 SP TYPE: PAPFT OTHR DR: Melva Covignton Tissues: 1 - CX/ENDOCX FOR PAP SMEARS Procedures: PAP THIN PREP/UVM Screening HPV DNA PROBE Comments: [id number]
== END 2022-03-03 13:04 | disposition home or self-care (01) ==
LOC: LBN 13:03
PROVIDERS: PCP Family Medicine; Visit Provider Advanced Practice Midwife
DX: Z12.4 Encounter for screening for malignant neoplasm of cervix (principal); Z11.51 Encounter for screening for human papillomavirus (HPV)
CPT/HCPCS: 88142; 87624

== ENCOUNTER 2022-03-27 02:52 | Outpatient (CLI) | payer OTHER, MEDICAID, SELFPAY ==
[2022-03-27 14:37] LABS: Kit/Specimen SENT
== END 2022-03-27 02:53 | disposition home or self-care (01) ==
PROVIDERS: PCP Family Medicine; Visit Provider Pediatrics
DX: Z13.89 Encounter for screening for other disorder (principal)
CPT/HCPCS: 36415

== ENCOUNTER 2022-10-17 00:36 | Outpatient (CLI) | payer MEDICAID, SELFPAY ==
--- NOTE | 2022-10-17 06:30 | DI.US_ITS ---
Exam(s) US PELVIS TRANSVAGINAL EXAM: US PELVIS TRANSVAGINAL CLINICAL HISTORY: Check fibroids,d25.9. TECHNIQUE: Transabdominal and transvaginal pelvic ultrasound was performed using standard protocol. COMPARISON: No exams were available for comparison FINDINGS: UTERUS: Position: Anteverted. Size: 6 long by 2.9 AP by 4.2 transverse cm Endometrium: 0.2 cm. Normal for patient's menstrual status. Myometrium: There is a pedunculated fibroid from the arising from the fundal and right uterus measuri ng 1.9 x 1.8 x 2.7 cm. There is a 1.7 x 1.4 x 1.7 cm posterior uterine fibroid. Cervix: Unremarkable. OVARIES: Right: 2.7 x 1.1 x 1.9 cm Cyst or mass: No suspicious cystic or solid masses. Left: 2.9 x 2.1 x 2.5 cm Cyst or mass: No suspicious cystic or solid masses. DOPPLER: Color: Symmetric and uniform flow to both ovaries. CUL-DE-SAC: Free fluid: Tiny amount of free fluid in the cul-de-sac. Other: None. IMPRESSION: 1. Fibroid uterus with unremarkable endometrial stripe. 2. Unremarkable bilateral ovaries. DATA REPOSITORY:
== END 2022-10-17 00:56 ==
LOC: DI 00:37
PROVIDERS: PCP Family Medicine; Visit Provider Obstetrics & Gynecology
DX: D25.9 Leiomyoma of uterus, unspecified (principal)
CPT/HCPCS: 76830; 76856

== ENCOUNTER 2024-02-26 16:32 | Outpatient (REF) | payer BC, SELFPAY ==
[2024-02-26 21:53] LABS: Hemoglobin A1C 5.2 % (<5.7)
[2024-02-26 22:19] LABS: Ferritin 38 ng/mL (8-252)
[2024-02-26 23:32] LABS: FREE T4 1.04 ng/dL (0.76-1.46)
[2024-02-29 09:39] LABS: Thyroglobulin Antibody <15 U/mL (<=60)
[2024-02-29 09:52] LABS: Thyroperoxidase Antibody <28 U/mL (<=60)
== END 2024-02-26 16:33 | disposition home or self-care (01) ==
LOC: NCHCN 16:32
PROVIDERS: PCP Family Medicine; Visit Provider Family Medicine
DX: Z13.1 Encounter for screening for diabetes mellitus (principal); Z13.89 Encounter for screening for other disorder; Z13.21 Encounter for screening for nutritional disorder
CPT/HCPCS: 82306; 82728; 83036; 84439; 84481; 86376; 86800